=== PATIENT | female | born 1950 | race Caucasian/White ===

== ENCOUNTER 2018-06-30 20:46 | Inpatient (IN) | payer MEDICARE ==
[~2018-06-30] VITALS: Ht 157.5 cm; Wt 69.5 kg
[~2018-06-30 20:46] MED LIST: ALEN70 PO; ANGELIQ PO; ARIP10 PO; ARIP15; BCOIRO; BUDE6HFA INH; BUPR150ER PO; CALCAVITDA; CLON1; CLON1 PO; Chantix1 EACH; DESV50 PO; DESVENLAFAXINE50 M2 PO; DEXL60CA3 PO; DICL25ER PO; DICL75ER; DICMIS50EC PO; DOXY100 PO; ERGO50000 PO; ESTMEDA; EZET10-20 PO; FISH1000; FLUO20 PO; GABA400; GLUCHON; IBUP600 PO; LAMO100 PO; LITH300C PO; LORA.5 PO; Lamictal200 MG PO; METO25 PO; METO25ER PO; NORT25; NORT25 PO; OMEP20ER PO; OXYACE5T; PANT40; PROM25 PO; PROP20 PO; PROP60; Percocet 5-3251 EACH PO; Sudogest30 MG; TOLT4 PO; TOPI25; TOPI50 PO; VENL150ER PO; VENL25; Veetids 500500 MG PO; ZALE5
[2018-06-30] MEDS ORDERED: TRAZ100 PO (21:01)
[2018-06-30 21:18] LABS: BASOPHILS ABSOLUTE AUTO 0.04 K/mm3 (0.00-0.23); BASOPHILS PERCENT AUTO 1 % (0-2); EOSINOPHILS ABSOLUTE AUTO 0.02 K/mm3 (0.00-0.68); EOSINOPHILS PERCENT AUTO 0 % (0-6); Hemoglobin 15.5 g/dL (11.5-16.0); IMMATURE GRAN ABSOLUTE AUTO 0.03 K/mm3 (0.00-0.10); IMMATURE GRAN PERCENT AUTO 0 % (0-1); LYMPHOCYTES ABSOLUTE AUTO 0.89 K/mm3 (0.84-5.20); LYMPHOCYTES PERCENT AUTO 10 % (21-46); MONOCYTES ABSOLUTE AUTO 0.55 K/mm3 (0.16-1.47); MONOCYTES PERCENT AUTO 6 % (4-13); Mean Corpuscular HGB 31.3 pg (26.0-34.0); Mean Corpuscular Volume 95 fL (80-100); Mean Platelet Volume 10.7 fL (9.1-12.4); NEUTROPHILS ABSOLUTE AUTO 7.06 K/mm3 (1.96-9.15); NEUTROPHILS PERCENT AUTO 82 % (41-73); Platelet Count 170 K/mm3 (150-400); RDW Coefficient Variation 13.2 % (11.7-14.2); Red Blood Cell Count 4.95 M/mm3 (3.80-5.20); White Blood Cell Count 8.59 K/mm3 (4.00-11.30)
[2018-06-30 21:38] LABS: Alanine Aminotransfer (ALT/SGP 34 U/L (12-78); Albumin, Blood 4.5 g/dL (3.4-5.0); Albumin/Globulin Ratio 1.3 (0.8-1.8); Alk Phos 111 U/L (50-136); Anion Gap 8 mmol/L (6-16); Aspartate Aminotrans (AST/SGOT 24 U/L (12-37); Bilirubin, Total 0.4 mg/dL (0.1-1.0); Blood Urea Nitrogen 8 mg/dL (8-24); Bun/Creatinine Ratio 7.9 (12.0-20.0); CO2, Blood 24 mmol/L (21-32); Calcium, Blood 9.2 mg/dL (8.5-10.1); Chloride, Blood 111 mmol/L (98-108); Creatinine, Blood 1.01 mg/dL (0.40-1.00); Globulin, Blood 3.5 g/dL (2.2-4.0); Glomerular Filtration Rate 58 (60-); Glucose, Blood 131 mg/dL (70-99); Potassium, Blood 3.5 mmol/L (3.5-5.5); Sodium, Blood 143 mmol/L (136-145); Troponin I <0.015 ng/mL (0.000-0.040)
[2018-06-30 22:42] LABS: Influenza A Negative (NEGATIVE); Influenza B Negative (NEGATIVE)
[2018-07-01] MEDS ORDERED: ATOR20 PO (01:02)
[2018-07-01] MEDS ORDERED: Halcion0.25 MG PO (01:03)
[2018-07-01] MEDS ORDERED: TOLT2 PO (01:04)
[2018-07-01] MEDS ORDERED: ALBU90OI61 INH (01:07)
[2018-07-01 05:27] LABS: Hematocrit 43.9 % (33.0-51.0); Hemoglobin 14.5 g/dL (11.5-16.0); Mean Corpuscular HGB 31.4 pg (26.0-34.0); Mean Corpuscular Volume 95 fL (80-100); Platelet Count 141 K/mm3 (150-400); RDW Coefficient Variation 13.2 % (11.7-14.2); Red Blood Cell Count 4.62 M/mm3 (3.80-5.20); White Blood Cell Count 6.34 K/mm3 (4.00-11.30)
[2018-07-01 06:02] LABS: Alanine Aminotransfer (ALT/SGP 29 U/L (12-78); Albumin, Blood 3.9 g/dL (3.4-5.0); Albumin/Globulin Ratio 1.1 (0.8-1.8); Alk Phos 97 U/L (50-136); Anion Gap 7 mmol/L (6-16); Aspartate Aminotrans (AST/SGOT 19 U/L (12-37); Bilirubin, Total 0.6 mg/dL (0.1-1.0); Blood Urea Nitrogen 10 mg/dL (8-24); Bun/Creatinine Ratio 11.1 (12.0-20.0); CO2, Blood 25 mmol/L (21-32); Calcium, Blood 8.8 mg/dL (8.5-10.1); Chloride, Blood 110 mmol/L (98-108); Globulin, Blood 3.6 g/dL (2.2-4.0); Glomerular Filtration Rate >60 (60-); Glucose, Blood 116 mg/dL (70-99); Potassium, Blood 3.7 mmol/L (3.5-5.5); Sodium, Blood 142 mmol/L (136-145); Total Protein, Blood 7.5 g/dL (6.4-8.2)
--- NOTE | 2018-07-01 07:07 | NUR ---
SHIFT SUMMARY 0050 RECEIVED PT TO RM 341 VIA GURNEY FROM ER. PT ABLE TO TX SELF TO BED. ADMITTED FOR COPD EXAC. RECEIVED REPORT FROM JOLIE CLEVELAND. PT NORMALLY ON 2.5L O2 ONLY AT HS, BUT HAVING INCREASED SOB YESTERDAY REQUIRING O2 ALL DAY. PT REPORTED INCREASED WEAKNESS WELL. TRIAL AMBULATION DONE IN ER SHOWING O2 SATS DECREASED TO 80% ON RA. O2 PLACED. PT INDEPENDANT TO BTHRM WITH O2 EXTENSION. SOB WITH ACTIVITY. CXR REPORTED TO BE CLEAR. PT REPORTED THAT SHE IS STILL A SMOKER; 1/2 PACK/DAY. COUGH MEDICATION GIVEN AFTER ADMISSION; PT REPORTED IT EFFECTIVE AND WAS ABLE TO SLEEP. PLEASANT AND CO-OP. DENIED FURTHER NEEDS THIS AM. REPORT GIVEN TO DELANO CLEVELAND.
--- NOTE | 2018-07-01 15:21 | NUR ---
DRY COUGH NOTED PT REPORTS NONPRODUCTIVE COUGH. UNABLE TO PROVIDE A SPUTUM SAMPLE AT THIS TIME.
--- NOTE | 2018-07-01 18:03 | NUR ---
SHIFT SUMMARY OX3; INDEPENDENT IN [place]; 2.5L 02 PER NC FOR SLEEP AT HOME; 2.5L 02 CONTINUOUS IN HOSPITAL. DRY NONPRODUCTIVE COUGH NOTED PRN MED GIVEN. DENIES ANY PAIN. NEBS GIVEN PER RT. PLEASANT, COOPERATIVE. HOME MEDS LABELED BY PHARMACY AND PLACED IN DRAWER.
--- NOTE | 2018-07-02 04:09 | NUR ---
NOC SHIFT SUMMARY PT HAS BEEN PLEASANT AND COOPERATIVE WITH CARE THIS NIGHT VS HAVE BEEN STABLE. PT WAS ABLE TO PRODUCE SPUTUM SAMPLE FOR CX AND THIS WAS SENT TO LAB EARLY IN THE NIGHT. SHE COMPLAINED OF CONTINUED COUGH WHICH WAS DISTURBING HER SLEEP. DEXTROMETHORPHAN COUGH SYRUP WAS GIVEN AND PT'S COUGH WAS MUCH IMPROVED ALLOWING HER TO SLEEP. RESP EVEN AND UNLABORED. PT CURRENLTY SLEEPING, APPEARS IN NOT ACUTE DISTRESS. WILL CONTINUE TO MONITOR.
--- NOTE | 2018-07-02 18:02 | NUR ---
SHIFT SUMMARY OX3 PLEASANT, CALM SEVERAL VISITORS TODAY. DENIES ANY PAIN. SOB IMPROVING. REMAINS ON 2.5L PER NC. INDEPENDENT IN ROOM. POSSIBLE DC IN A.M.
--- NOTE | 2018-07-03 04:23 | NUR ---
SHIFT SUMMARY NO ACUTE CHANGES THIS SHIFT. PT SLEPT WELL T/O NIGHT, AOX4. DENIES PAIN OR N/V. DENIES SOB WHILE @REST, REPORTS DISCOMFORT W/COUGHING & MEDICATED 1X W/ROBITUSSIN PER ORDERS. LUNGS SOUND COURSE T/O W/EXPIRATORY WHEEZES IN BILAT UPPER LOBES. PT HAS E/U BREATHING. VSS. SPO2@ 93% ON 2.5L. PT IS NSR W/HR 93 PER TELE BEE RAISER. PT INDEPENDENTLY AMBULATING TO RESTROOM. CALL LIGHT IN REACH & I WILL CONT. TO MONITOR.
[2018-07-03] MEDS ORDERED: NICOTINE1 EAC1 TOP (13:18)
[2018-07-03] MEDS ORDERED: PRED20 PO (13:19)
[2018-07-03] MEDS ORDERED: IBUP600 PO (13:20)
--- NOTE | 2018-07-03 15:45 | NUR ---
DISCHARGE SUMMARY PT A&OX4. CALM AND COOPERATIVE WITH CARE. PT RESTING IN BED DURING SHIFT. UP IN ROOM IND. SOB WITH EXERTION, TITRATED FROM 2L O2 VIA NC TO RA, >90%, RECEIVING BREATHING TREATMENTS. REPORTS PRODUCTIVE COUGH, MEDICATED X1 WITH ROBATUSSIN. PT DENIES PAIN AND N/V DURING SHIFT. VSS. NO OTHER ACUTE CHANGES NOTED DURING SHIFT. PT EDUCATED ON DISCHARGE INSTRUCTIONS, MEDICATIONS AND FOLLOW UP APPOINTMENTS. DISCUSS SMOKING CESSATION AND STEPS TO QUITING. PRESCRIPTIOSN FAXED AND CALLED INTO [facility] ON [address]. PT LEFT ROOM VIA WHEELCHAIR AT 1455. PT STABLE UPON DISCHARGE.
== END 2018-07-03 14:59 | disposition home or self-care (01) | DRG 189 ==
LOC: ER 20:46 → MEDS 20:47 → ENPENDDIS 07-03 13:06 → MEDS 07-03 14:59
PROVIDERS: Emergency Medicine; ADMIT Internal Medicine
DX: J96.21 Acute and chronic respiratory failure with hypoxia (principal); J44.1 Chronic obstructive pulmonary disease with (acute) exacerbation; J44.0 Chronic obstructive pulmonary disease with (acute) lower respiratory infection; J20.9 Acute bronchitis, unspecified; K21.9 Gastro-esophageal reflux disease without esophagitis; E66.9 Obesity, unspecified; F31.9 Bipolar disorder, unspecified; G43.909 Migraine, unspecified, not intractable, without status migrainosus; F43.10 Post-traumatic stress disorder, unspecified; F17.210 Nicotine dependence, cigarettes, uncomplicated; Z88.5 Allergy status to narcotic agent; Z88.8 Allergy status to other drugs, medicaments and biological substances; Z99.81 Dependence on supplemental oxygen; Z79.899 Other long term (current) drug therapy
CPT/HCPCS: 36415; 71045; 80053; 83880; 84145; 84484; 85025; 85027; 87070; 87205; 87804; 93005; 93010; 94640; 94664; 94667; 94760; 96365; 96366; 96372; 96375; 98960; 99285-25; 99407; G0378; J1650; J1956; J2930; J7050

== ENCOUNTER → 2019-08-08 | Outpatient (CLI) | payer OTHER ==
[~2019-08-08] MED LIST changes: +ALBU90OI61 INH; +ATOR20 PO; +Halcion0.25 MG PO; +NICOTINE1 EAC1 TOP; +PRED20 PO; +TOLT2 PO; +TRAZ100 PO
[2019-08-08 16:22] LABS: BASOPHILS ABSOLUTE AUTO 0.02 K/mm3 (0.00-0.23); BASOPHILS PERCENT AUTO 1 % (0-2); EOSINOPHILS ABSOLUTE AUTO 0.04 K/mm3 (0.00-0.68); EOSINOPHILS PERCENT AUTO 1 % (0-6); Hematocrit 32.5 % (33.0-51.0); Hemoglobin 10.7 g/dL (11.5-16.0); IMMATURE GRAN PERCENT AUTO 0 % (0-1); LYMPHOCYTES ABSOLUTE AUTO 0.27 K/mm3 (0.84-5.20); LYMPHOCYTES PERCENT AUTO 9 % (21-46); MONOCYTES ABSOLUTE AUTO 0.37 K/mm3 (0.16-1.47); MONOCYTES PERCENT AUTO 12 % (4-13); Mean Corpuscular HGB 30.9 pg (26.0-34.0); Mean Corpuscular HGB Conc 32.9 g/dL (31.5-36.5); Mean Corpuscular Volume 94 fL (80-100); Mean Platelet Volume 10.2 fL (9.1-12.4); NEUTROPHILS ABSOLUTE AUTO 2.28 K/mm3 (1.96-9.15); NEUTROPHILS PERCENT AUTO 77 % (41-73); Platelet Count 196 K/mm3 (150-400); RDW Coefficient Variation 15.1 % (11.7-14.2); RDW Standard Deviation 51.3 fL (35.1-46.3); Red Blood Cell Count 3.46 M/mm3 (3.80-5.20); White Blood Cell Count 2.98 K/mm3 (4.00-11.30)
== END | disposition home or self-care (01) ==
LOC: LAB EV 16:18 → LAB SHORT 16:18
PROVIDERS: General Practice
DX: N39.0 Urinary tract infection, site not specified (principal)
CPT/HCPCS: 85025; 87086

== ENCOUNTER 2021-04-06 00:13 | Emergency (ER) | payer OTHER ==
[~2021-04-06] VITALS: Ht 157.5 cm; Wt 68.0 kg
[2021-04-06] MEDS ORDERED: TRAZ150T57 PO (00:36)
[2021-04-06 01:12] LABS: BASOPHILS ABSOLUTE AUTO 0.02 K/mm3 (0.00-0.23); BASOPHILS PERCENT AUTO 1 % (0-2); EOSINOPHILS ABSOLUTE AUTO 0.06 K/mm3 (0.00-0.68); EOSINOPHILS PERCENT AUTO 1 % (0-6); Hemoglobin 14.2 g/dL (11.5-16.0); IMMATURE GRAN ABSOLUTE AUTO 0.01 K/mm3 (0.00-0.10); IMMATURE GRAN PERCENT AUTO 0 % (0-1); LYMPHOCYTES ABSOLUTE AUTO 0.79 K/mm3 (0.84-5.20); LYMPHOCYTES PERCENT AUTO 18 % (21-46); MONOCYTES ABSOLUTE AUTO 0.52 K/mm3 (0.16-1.47); MONOCYTES PERCENT AUTO 12 % (4-13); Mean Corpuscular HGB 31.1 pg (26.0-34.0); Mean Corpuscular Volume 94 fL (80-100); Mean Platelet Volume 10.7 fL (9.1-12.4); NEUTROPHILS ABSOLUTE AUTO 2.92 K/mm3 (1.96-9.15); NEUTROPHILS PERCENT AUTO 68 % (41-73); Platelet Count 136 K/mm3 (150-400); RDW Coefficient Variation 13.5 % (11.7-14.2); RDW Standard Deviation 46.4 fL (35.1-46.3); Red Blood Cell Count 4.57 M/mm3 (3.80-5.20); White Blood Cell Count 4.32 K/mm3 (4.00-11.30)
[2021-04-06 01:35] LABS: Alanine Aminotransfer (ALT/SGP 33 U/L (12-78); Albumin, Blood 3.6 g/dL (3.4-5.0); Alk Phos 86 U/L (50-136); Anion Gap 6 mmol/L (6-16); Aspartate Aminotrans (AST/SGOT 30 U/L (12-37); Bilirubin, Total 0.4 mg/dL (0.1-1.0); Blood Urea Nitrogen 14 mg/dL (8-24); Bun/Creatinine Ratio 23.2 (12.0-20.0); CO2, Blood 27 mmol/L (21-32); Calcium, Blood 9.1 mg/dL (8.5-10.1); Chloride, Blood 111 mmol/L (98-108); Globulin, Blood 3.5 g/dL (2.2-4.0); Glomerular Filtration Rate >60 (60-); Glucose, Blood 110 mg/dL (70-99); Potassium, Blood 3.6 mmol/L (3.5-5.5); Sodium, Blood 144 mmol/L (136-145); Total Protein, Blood 7.1 g/dL (6.4-8.2); Troponin I <0.015 ng/mL (0.000-0.040)
[2021-04-06] MEDS ORDERED: AZIT250 PO (03:19)
[2021-04-06] MEDS ORDERED: ALBU2.5V5 INH (03:19)
== END 2021-04-06 04:06 | disposition home or self-care (01) ==
LOC: ER 00:13
PROVIDERS: Student in an Organized Health Care Education/Training Program
DX: J44.1 Chronic obstructive pulmonary disease with (acute) exacerbation (principal); Z88.5 Allergy status to narcotic agent; Z88.8 Allergy status to other drugs, medicaments and biological substances; G43.909 Migraine, unspecified, not intractable, without status migrainosus; K21.9 Gastro-esophageal reflux disease without esophagitis; Z79.899 Other long term (current) drug therapy
CPT/HCPCS: 36415; 71046; 80053; 83880; 84484; 85025; 93005; 93010; 94640; 94644; 94645; 96374; 99285-25; A9270; J1100

== ENCOUNTER 2021-12-19 10:31 | Emergency (ER) | payer OTHER ==
[~2021-12-19] VITALS: Ht 157.5 cm; Wt 59.4 kg
[~2021-12-19 10:31] MED LIST changes: +ALBU2.5V5 INH; +AZIT250 PO; +TRAZ150T57 PO
[2021-12-19 12:47] LABS: BASOPHILS ABSOLUTE AUTO 0.01 K/mm3 (0.00-0.23); BASOPHILS PERCENT AUTO 0 % (0-2); EOSINOPHILS ABSOLUTE AUTO 0.01 K/mm3 (0.00-0.68); EOSINOPHILS PERCENT AUTO 0 % (0-6); Hematocrit 41.8 % (33.0-51.0); Hemoglobin 13.8 g/dL (11.5-16.0); IMMATURE GRAN ABSOLUTE AUTO 0.02 K/mm3 (0.00-0.10); IMMATURE GRAN PERCENT AUTO 1 % (0-1); LYMPHOCYTES ABSOLUTE AUTO 0.48 K/mm3 (0.84-5.20); LYMPHOCYTES PERCENT AUTO 12 % (21-46); MONOCYTES ABSOLUTE AUTO 0.41 K/mm3 (0.16-1.47); MONOCYTES PERCENT AUTO 11 % (4-13); Mean Corpuscular HGB 30.3 pg (26.0-34.0); Mean Corpuscular Volume 92 fL (80-100); NEUTROPHILS ABSOLUTE AUTO 2.99 K/mm3 (1.96-9.15); NEUTROPHILS PERCENT AUTO 76 % (41-73); Platelet Count 264 K/mm3 (150-400); RDW Coefficient Variation 13.1 % (11.7-14.2); RDW Standard Deviation 44.6 fL (35.1-46.3); Red Blood Cell Count 4.55 M/mm3 (3.80-5.20); White Blood Cell Count 3.92 K/mm3 (4.00-11.30)
[2021-12-19 13:05] LABS: Albumin, Blood 2.9 g/dL (3.4-5.0); Albumin/Globulin Ratio 0.6 (0.8-1.8); Bilirubin, Total 0.6 mg/dL (0.1-1.0); Bun/Creatinine Ratio 13.3 (12.0-20.0); Calcium, Blood 9.1 mg/dL (8.5-10.1); Creatinine, Blood 0.68 mg/dL (0.40-1.00); Globulin, Blood 4.7 g/dL (2.2-4.0); Potassium, Blood 3.3 mmol/L (3.5-5.5); Total Protein, Blood 7.6 g/dL (6.4-8.2)
== END 2021-12-19 19:00 | disposition home or self-care (01) ==
LOC: ER 10:31
PROVIDERS: Student in an Organized Health Care Education/Training Program
DX: R19.7 Diarrhea, unspecified (principal); K21.9 Gastro-esophageal reflux disease without esophagitis; J44.9 Chronic obstructive pulmonary disease, unspecified; F17.210 Nicotine dependence, cigarettes, uncomplicated; Z79.899 Other long term (current) drug therapy; Z88.5 Allergy status to narcotic agent; Z88.8 Allergy status to other drugs, medicaments and biological substances
CPT/HCPCS: 36415; 80053; 85025; J7030

== ENCOUNTER → 2021-12-25 | Outpatient (CLI) | payer OTHER ==
[2021-12-27 17:11] LABS: Adenovirus F 40/41 Not Detected (NOT DETECT); Astrovirus Not Detected (NOT DETECT); Campylobacter Sp Not Detected (NOT DETECT); Cryptosporidium Not Detected (NOT DETECT); Cyclospora Cayetanensis Not Detected (NOT DETECT); E. Coli O157 Not Detected (NOT DETECT); Entamoeba Histolytica Not Detected (NOT DETECT); Enteroaggregative E. coli-EAEC Not Detected (NOT DETECT); Enteropathogenic E. coli-EPEC Not Detected (NOT DETECT); Enterotoxigenic E. coli-ETEC Not Detected (NOT DETECT); Giardia Lamblia Not Detected (NOT DETECT); Norovirus GI/GII Not Detected (NOT DETECT); Plesiomonas Shigelloides Not Detected (NOT DETECT); Rotavirus A Not Detected (NOT DETECT); Salmonella Sp Not Detected (NOT DETECT); Sapovirus Not Detected (NOT DETECT); Shiga Toxin-prod E. coli-STEC Not Detected (NOT DETECT); Shigella/Enteroin E. coli-EIEC Not Detected (NOT DETECT); Vibrio Cholerae Not Detected (NOT DETECT); Vibrio Sp Not Detected (NOT DETECT); Yersinia Enterocolitica Not Detected (NOT DETECT)
== END | disposition home or self-care (01) ==
LOC: LAB SHORT 14:00 → LAB 14:00
PROVIDERS: Emergency Medicine
DX: R19.7 Diarrhea, unspecified (principal)
CPT/HCPCS: 87324; 87507

== ENCOUNTER 2022-12-16 16:45 | Inpatient (IN) | payer OTHER | END 2022-12-21 16:40 | DRG 480 | LOC: ER 16:45 → SURS 19:38 → PCU 12-18 19:38 → ICUE 12-19 03:20 → SURS 12-20 09:50 | PROVIDERS: ADMIT Internal Medicine | PROC: 0QS606Z Reposition Right Upper Femur with Intramedullary Internal Fixation Device, Open Approach (ICD-10-PCS; 2022-12-18) | PROC: 30233N1 Transfusion of Nonautologous Red Blood Cells into Peripheral Vein, Percutaneous Approach (ICD-10-PCS; principal; 2022-12-19) | PROC: 3E033XZ Introduction of Vasopressor into Peripheral Vein, Percutaneous Approach (ICD-10-PCS; 2022-12-19) | DX: S72.141A Displaced intertrochanteric fracture of right femur, initial encounter for closed fracture (principal); J96.21 Acute and chronic respiratory failure with hypoxia; J96.22 Acute and chronic respiratory failure with hypercapnia; F32.A Depression, unspecified; Z20.822 Contact with and (suspected) exposure to COVID-19; I95.9 Hypotension, unspecified; D64.89 Other specified anemias; F43.10 Post-traumatic stress disorder, unspecified; G43.909 Migraine, unspecified, not intractable, without status migrainosus; K21.9 Gastro-esophageal reflux disease without esophagitis; E78.5 Hyperlipidemia, unspecified; J44.9 Chronic obstructive pulmonary disease, unspecified; W18.39XA Other fall on same level, initial encounter; Y93.01 Activity, walking, marching and hiking; F17.210 Nicotine dependence, cigarettes, uncomplicated; Z88.5 Allergy status to narcotic agent; Z99.81 Dependence on supplemental oxygen; Z79.1 Long term (current) use of non-steroidal anti-inflammatories (NSAID); Z88.8 Allergy status to other drugs, medicaments and biological substances; Z79.899 Other long term (current) drug therapy; Z98.890 Other specified postprocedural states; Z98.1 Arthrodesis status; Z98.51 Tubal ligation status ==

== ENCOUNTER 2023-05-25 00:18 | Emergency (ER) | payer OTHER ==
[~2023-05-25] VITALS: Ht 160 cm; Wt 65.8 kg
[~2023-05-25 00:18] MED LIST changes: +TRELEGY ELLIPT1 EAC1 INH; +VENL75ER PO
[2023-05-25] MEDS ORDERED: TRELEGY ELLIPT1 EAC1 INH (00:30)
[2023-05-25] MEDS ORDERED: OMEP20ER PO (00:31)
[2023-05-25] MEDS ORDERED: AMOX500 PO (00:33)
[2023-05-25 01:06] LABS: BASOPHILS ABSOLUTE AUTO 0.03 K/mm3 (0.00-0.23); BASOPHILS PERCENT AUTO 1 % (0-2); EOSINOPHILS ABSOLUTE AUTO 0.14 K/mm3 (0.00-0.68); EOSINOPHILS PERCENT AUTO 3 % (0-6); Hematocrit 38.8 % (33.0-51.0); Hemoglobin 12.8 g/dL (11.5-16.0); IMMATURE GRAN ABSOLUTE AUTO 0.02 K/mm3 (0.00-0.10); IMMATURE GRAN PERCENT AUTO 0 % (0-1); LYMPHOCYTES PERCENT AUTO 21 % (21-46); MONOCYTES ABSOLUTE AUTO 0.36 K/mm3 (0.16-1.47); MONOCYTES PERCENT AUTO 6 % (4-13); Mean Corpuscular HGB 29.4 pg (26.0-34.0); Mean Corpuscular Volume 89 fL (80-100); Mean Platelet Volume 9.8 fL (9.1-12.4); NEUTROPHILS ABSOLUTE AUTO 3.94 K/mm3 (1.96-9.15); NEUTROPHILS PERCENT AUTO 69 % (41-73); Platelet Count 170 K/mm3 (150-400); RDW Coefficient Variation 13.8 % (11.7-14.2); Red Blood Cell Count 4.36 M/mm3 (3.80-5.20); White Blood Cell Count 5.69 K/mm3 (4.00-11.30)
[2023-05-25 01:25] LABS: Albumin, Blood 3.4 g/dL (3.4-5.0); Bilirubin, Total 0.2 mg/dL (0.1-1.0); Calcium, Blood 8.5 mg/dL (8.5-10.1); Creatinine, Blood 0.61 mg/dL (0.40-1.00); Globulin, Blood 3.4 g/dL (2.2-4.0); Potassium, Blood 3.8 mmol/L (3.5-5.5); Total Protein, Blood 6.8 g/dL (6.4-8.2)
[2023-05-25] MEDS ORDERED: Ventolin5 MG/1 ML INH (04:22)
[2023-05-25] MEDS ORDERED: PRED20 PO (04:22)
[2023-05-25 05:15] VITALS: BP 145/87
== END 2023-05-25 05:22 | disposition home or self-care (01) ==
LOC: ER 00:18
PROVIDERS: Student in an Organized Health Care Education/Training Program
DX: J44.1 Chronic obstructive pulmonary disease with (acute) exacerbation (principal); K21.9 Gastro-esophageal reflux disease without esophagitis; G43.909 Migraine, unspecified, not intractable, without status migrainosus; F43.10 Post-traumatic stress disorder, unspecified; F31.9 Bipolar disorder, unspecified; F17.210 Nicotine dependence, cigarettes, uncomplicated; Z79.51 Long term (current) use of inhaled steroids; Z79.899 Other long term (current) drug therapy; Z88.5 Allergy status to narcotic agent
CPT/HCPCS: 71046; 80053; 85025; 93005; 93010; 94640; 94664; 99285-25

== ENCOUNTER 2023-06-18 22:07 | Inpatient (IN) | payer OTHER ==
[~2023-06-18] VITALS: Ht 157.5 cm; Wt 67.9 kg
[~2023-06-18 22:07] MED LIST changes: +AMOX500 PO; +Ventolin5 MG/1 ML INH
[2023-06-18] MEDS ORDERED: Ipratropium Bromide INH 0.02% 0.5 mg/2.5ML Vial INH SCH (22:30)
[2023-06-18] MEDS ORDERED: Mag Sulfate 1 GM/D5% 100ML 100 ML IV ONE (22:30)
[2023-06-18] MEDS ORDERED: Albuterol 2.5 MG/3 ML VIAL INH ONE (22:30)
[2023-06-18 22:49] LABS: BASOPHILS ABSOLUTE AUTO 0.04 K/mm3 (0.00-0.23); BASOPHILS PERCENT AUTO 0 % (0-2); EOSINOPHILS ABSOLUTE AUTO 0.22 K/mm3 (0.00-0.68); EOSINOPHILS PERCENT AUTO 2 % (0-6); Hematocrit 45.3 % (33.0-51.0); Hemoglobin 14.8 g/dL (11.5-16.0); IMMATURE GRAN ABSOLUTE AUTO 0.04 K/mm3 (0.00-0.10); IMMATURE GRAN PERCENT AUTO 0 % (0-1); LYMPHOCYTES PERCENT AUTO 26 % (21-46); MONOCYTES ABSOLUTE AUTO 0.61 K/mm3 (0.16-1.47); MONOCYTES PERCENT AUTO 5 % (4-13); Mean Corpuscular HGB 29.4 pg (26.0-34.0); Mean Corpuscular HGB Conc 32.7 g/dL (31.5-36.5); Mean Corpuscular Volume 90 fL (80-100); Mean Platelet Volume 9.9 fL (9.1-12.4); NEUTROPHILS ABSOLUTE AUTO 9.17 K/mm3 (1.96-9.15); NEUTROPHILS PERCENT AUTO 67 % (41-73); Platelet Count 236 K/mm3 (150-400); RDW Coefficient Variation 14.2 % (11.7-14.2); RDW Standard Deviation 46.1 fL (35.1-46.3); Red Blood Cell Count 5.04 M/mm3 (3.80-5.20); White Blood Cell Count 13.68 K/mm3 (4.00-11.30)
[2023-06-18 22:52] LABS: Base Excess Venous 2.1 mmol/L; Bicarbonate Venous 24.6 mmol/L (24.0-30.0); PO2 Venous 91.9 mmHg (38-42)
[2023-06-18 22:56] LABS: pH Blood Venous 7.28 (7.34-7.37)
[2023-06-18 22:59] LABS: Magnesium, Blood 1.9 mg/dL (1.6-2.4)
[2023-06-18] MEDS ORDERED: CefTRIAXone Sodium 1,000 MG in NS 50 ML IV ONE (23:20)
[2023-06-18] MEDS ORDERED: NS 1,000 ML IV SCH (23:20)
[2023-06-18] MEDS ORDERED: Azithromycin 500 MG in NS 250 ML IV ONE (23:20)
[2023-06-18 23:26] LABS: Influenza A, PCR NEGATIVE (NEGATIVE); Influenza B, PCR NEGATIVE (NEGATIVE); Resp Syncytial Virus, PCR NEGATIVE (NEGATIVE); SARS-Cov-2 (COVID-19) PCR, MMC NEGATIVE (NEGATIVE)
[2023-06-18 23:53] LABS: Albumin, Blood 4.1 g/dL (3.4-5.0); Albumin/Globulin Ratio 1.2 (0.8-1.8); Bilirubin, Total 0.4 mg/dL (0.1-1.0); Bun/Creatinine Ratio 17.9 (12.0-20.0); Creatinine, Blood 0.73 mg/dL (0.40-1.00); Globulin, Blood 3.3 g/dL (2.2-4.0); Potassium, Blood 3.5 mmol/L (3.5-5.5); Total Protein, Blood 7.4 g/dL (6.4-8.2)
[2023-06-19] VITALS (19 sets, daily range): BP systolic 92–134; BP diastolic 64–94
[2023-06-19] MEDS ORDERED: Acetaminophen 325 MG TABLET PO PRN (00:30)
[2023-06-19] MEDS ORDERED: FLU VACC QS2023-24(6MOS UP)/PF 60 MCG/0.5 ML SYRINGE IM ONE (00:30)
[2023-06-19] MEDS ORDERED: Ipratropium/Albuterol SulF 2.5-0.5MG/3 ML Amp INH SCH (00:35)
[2023-06-19] MEDS ORDERED: NS 1,000 ML IV SCH (01:00)
[2023-06-19] MEDS ORDERED: CENTRUM SILVER1 EAC2 PO (02:22)
[2023-06-19] MEDS ORDERED: B-12500 MC2 PO (02:23)
--- NOTE | 2023-06-19 03:12 | NUR ---
PT ADMITTED TO ROOM ICU 14 FROM ED UNDER PCU STATUS. ARRIVING AT 0145 THIS MORNING. PT SLIDE TRANSFERRED TO BED. PT ALERT AND ORIENTED. ON NASAL CANNULA AT 5 L/M. WITH EXERTION AND ANSWERING QUESTIONS PT DESATURATES TO [address] PT TO BIPAP AT 14/7 WITH BACKUP RATE 16, FIO2 30 PERCENT. PT RESPONDS QUICKLY TO THIS AND SATURATIONS INCREASE TO 95-96 PERCENT. PT ABLE TO ANSWER QUESTIONS FOR INTERVIEW. GOOD HISTORIAN. PT DENIES PAIN OR NAUSEA. WILL REVIEW CHART AND PLAN OF CARE FOR THIS PT.
--- NOTE | 2023-06-19 05:34 | NUR ---
PT CONTINUES WITH BIPAP AND IS COMPLIANT WITH WEARING MASK. MAINTAINS O2 SATURATIONS > 90 PERCENT. HAS BEEN ABLE TO SLEEP. WILL CONTINUE TO MONITOR PT, AND WILL REPORT OFF TO ONCOMING RN.
[2023-06-19] MEDS ORDERED: Pantoprazole Sodium 40 MG Injection IV SCH (06:00)
[2023-06-19] MEDS ORDERED: MethylPREDNISolone Sod Succ 125 MG Vial IV SCH (06:00)
[2023-06-19] MEDS ORDERED: Insulin Human Lispro 100 Units/ML 3ML Syringe SC SCH ×2 (06:00→07:30)
--- NOTE | 2023-06-19 08:20 | NUR ---
INITIAL ASSESSMENT PATIENT RESTING IN BED QUIETLY UPON ENTERING ROOM. PATIENT ALERT AND ORIENTED X 4, AFEBRILE. PATIENT DENIES PAIN. PATIENT 1 PERSON ASSIST WITH HOME CANE. PATIENT DECREASED FROM 3 L NC (HOME DOSE) TO 2 L NC AND REMAINS SATTING AROUND 92 TO 94%. CRACKLES TO LOWER LUNG LOBES. EXPIRATORY WHEEZE TO RUL. PATIENT STATES SHE HAS OCCASIONAL, NONPRODUCTIVE COUGH. PATIENT IN SR WITH PACS, HR IN THE 90S. SBP IN THE LOW 100S. GI APPEARS WNL. PATIENT REPORTS OCCASIONAL URINARY INCONTINENCE AT BASELINE. SKIN FRAGILE AND DRY. SCATTERED BRUISING NOTED T/O BODY. NS INFUSING AT 125 MLS/ HOUR. BED LOW, CALL LIGHT IN REACH. CARE CONTINUES.
[2023-06-19 08:40] LABS: Bicarbonate Venous 24.5 mmol/L (24.0-30.0); PO2 Venous 78.7 mmHg (38-42); pH Blood Venous 7.33 (7.34-7.37)
[2023-06-19] MEDS ORDERED: Lactobacil 2-S.Thermo-Bifido 1 1 Cap PO SCH (09:00)
[2023-06-19] MEDS ORDERED: Venlafaxine HCl 75 MG CapCR PO SCH (09:00)
[2023-06-19] MEDS ORDERED: Enoxaparin 40 MG/0.4 ML SYR SC SCH (09:00)
[2023-06-19] MEDS ORDERED: TRELEGY ELLIPTA INH SCH (09:00)
[2023-06-19] MEDS ORDERED: Trospium Chloride 20 MG Tab PO SCH ×2 (09:00→16:30)
[2023-06-19] MEDS ORDERED: TOLTERODINE 4 MG PO SCH (09:05)
--- NOTE | 2023-06-19 10:52 | NUR ---
Pt. is awake in bed and welcomed my visit. Pt. is pleasant. Facilitated a life review and consideded matters of julianna and belief. Listened with empathy and interest. Pt. displays evidence of openness and trust. Lab techs arrived, and we agreed to resume visit later.
--- NOTE | 2023-06-19 13:08 | NUR ---
PATIENT AFEBRILE. HR IN THE 90S. SBP IN THE 120S. BLOOD SUGAR OF 155; COVERAGE ADMINISTERED. NO OTHER ACUTE CHANGES TO NOTE ON AT THIS TIME. NO COMPLAINTS AT THIS TIME. CALL LIGHT IN REACH. CARE CONTINUES.
--- NOTE | 2023-06-19 17:35 | NUR ---
PATIENT AFEBRILE. HR IN THE 90S. SBP IN THE 120S. PATIENT REMAINS SATTING OVER 90% ON 2 L NC. NO ACUTE CHANGES TO NOTE ON AT THIS TIME. NO COMPLAINTS AT THIS TIME. CARE CONTINUES.
--- NOTE | 2023-06-19 17:58 | NUR ---
SHIFT SUMMARY PATIENT REMAINED ALERT AND ORIENTED, AFEBRILE. PATIENT REMAINED CALM, PLEASANT AND COOPERATIVE. PATIENT HAD NO COMPLAINTS OF PAIN THIS SHIFT. PATIENT UP TO CHAIR A COUPLE OF TIMES THIS SHIFT. PATIENT 1 PERSON ASSIST WITH CANE FOR WEAKNESS. PATIENT REMAINED SATTING 90% AND GREATER THIS SHIFT ON 2 L NC. PATIENT REMAINED SR/ST WITH PACS, HR IN THE 90S TO LOW 100S. SBP LOW 100S TO 130S. NO BM THIS SHIFT. PATIENT HAD GOOD APPETITE. GOOD URINE OUTPUT THIS SHIFT. PATIENT DID HAVE SMALL AMOUNT OF VAGINAL BLEEDING WHICH IS NOT NORMAL FOR HER. DR. MORA'Aamir LOVENOX AND ORDERED FOR SCDS. NO CHANGES TO SKIN NOTED. PATIENT REPOSITIONING SELF WELL. PATIENT HAD COMPLETE BED BATH. NS AT 125 MLS/ HOUR ABBY'D THIS AM. PATIENT HAD ECHO PERFORMED THIS SHIFT. BLOOD SUGARS RANGED FROM 130 TO 172. PATIENT TO BE TRANSFERRED TO MEDICAL FLOOR SHORTLY.
--- NOTE | 2023-06-19 18:30 | NUR ---
PATIENT SUCCESSFULLY TRANSFERRED TO MEDICAL FLOOR, ROOM 303. ALL BELONGINGS SENT WITH PATIENT.
--- NOTE | 2023-06-19 19:09 | NUR ---
PATIENT TRANSFERRED FROM ICU14 TO ROOM 303. REPORT RECEIVED FROM MEGHA MOLINA. PATIENT MAINTAINING SATS ON 2LO2. A/OX4, INDEPENDENT WITH TRANSFER USING CANE. ORIENTED TO ROOM AND USE OF CALL LIGHT. PATIENT DENIES ANY NEEDS AT THIS TIME.
[2023-06-19] MEDS ORDERED: ARIPiprazole 5 MG Tab PO SCH (21:00)
[2023-06-19] MEDS ORDERED: TraZODone HCl 100 MG Tab PO SCH (21:00)
[2023-06-19] MEDS ORDERED: LamoTRIgine 100 MG Tab PO SCH (21:00)
[2023-06-19] MEDS ORDERED: CefTRIAXone Sodium 1,000 MG in NS 50 ML IV SCH (21:00)
[2023-06-19] MEDS ORDERED: Azithromycin 500 MG in NS 250 ML IV SCH (21:00)
[2023-06-19] MEDS ORDERED: Atorvastatin 10 MG Tab PO SCH (21:00)
[2023-06-20 03:52] VITALS: BP 101/65
--- NOTE | 2023-06-20 03:53 | NUR ---
Shift Summary Ms. Anglin has rested quielty throughout the night. Skin is warm and dry. Respirations are regular and unlabored. She has bilateral expiratory wheezes and crackles in the lower lobes. She is on oxygen at 2L per NC. She is alert and oriented x 4. She has a 20g IV in her Right AC that is saline locked. She is on Tele in a sinus rhythm with PACs. Her bed is in a low position with side rails up x 2 and call light in reach.
[2023-06-20 04:36] LABS: Base Excess Venous 3.5 mmol/L; Bicarbonate Venous 27.9 mmol/L (24.0-30.0); PCO2 Venous 33.6 mmHg (38-42); pH Blood Venous 7.51 (7.34-7.37)
[2023-06-20 05:10] LABS: BASOPHILS ABSOLUTE AUTO 0.02 K/mm3 (0.00-0.23); BASOPHILS PERCENT AUTO 0 % (0-2); EOSINOPHILS PERCENT AUTO 0 % (0-6); Hematocrit 41.1 % (33.0-51.0); Hemoglobin 13.7 g/dL (11.5-16.0); IMMATURE GRAN ABSOLUTE AUTO 0.05 K/mm3 (0.00-0.10); IMMATURE GRAN PERCENT AUTO 0 % (0-1); LYMPHOCYTES ABSOLUTE AUTO 0.72 K/mm3 (0.84-5.20); LYMPHOCYTES PERCENT AUTO 5 % (21-46); MONOCYTES ABSOLUTE AUTO 0.24 K/mm3 (0.16-1.47); MONOCYTES PERCENT AUTO 2 % (4-13); Mean Corpuscular HGB 29.8 pg (26.0-34.0); Mean Corpuscular HGB Conc 33.3 g/dL (31.5-36.5); Mean Corpuscular Volume 89 fL (80-100); Mean Platelet Volume 10.2 fL (9.1-12.4); NEUTROPHILS ABSOLUTE AUTO 12.66 K/mm3 (1.96-9.15); NEUTROPHILS PERCENT AUTO 92 % (41-73); Platelet Count 211 K/mm3 (150-400); RDW Coefficient Variation 14.3 % (11.7-14.2); RDW Standard Deviation 45.8 fL (35.1-46.3); White Blood Cell Count 13.69 K/mm3 (4.00-11.30)
[2023-06-20 05:44] LABS: Bun/Creatinine Ratio 31.2 (12.0-20.0); Calcium, Blood 9.1 mg/dL (8.5-10.1); Creatinine, Blood 0.67 mg/dL (0.40-1.00); Potassium, Blood 4.1 mmol/L (3.5-5.5)
[2023-06-20 07:30] VITALS: BP 121/64
[2023-06-20] MEDS ORDERED: PRED20 PO (10:26)
--- NOTE | 2023-06-20 12:18 | NUR ---
DISCHARGE NOTE: DISCUSSED DISCHARGE WITH PATIENT. HER IV AND TELEMETRY WERE D/C'D. SHE CONTACTED HER BOYFRIEND FOR A RIDE AND HE BROUGHT HER PORTAL OXYGEN. SHE DRESSES HERSELF AND GATHERED HER BELONGINGS. PATIENT TRANFERRED DOWN VIA WHEELCHAIR BY AMADOU. NO SIGNS OR SYMPTOMS OF DISTRESS DURING DISCHARGE.
== END 2023-06-20 11:45 | disposition home or self-care (01) | DRG 871 ==
LOC: ER 22:07 → ERHOLD 06-19 00:25 → ICUE 06-19 01:40 → MEDS 06-19 18:29
PROVIDERS: Internal Medicine; Student in an Organized Health Care Education/Training Program; ADMIT Internal Medicine
PROC: 3E03329 Introduction of Other Anti-infective into Peripheral Vein, Percutaneous Approach (ICD-10-PCS; principal; 2023-06-19)
PROC: 5A09357 Assistance with Respiratory Ventilation, Less than 24 Consecutive Hours, Continuous Positive Airway Pressure (ICD-10-PCS; 2023-06-19)
DX: A41.9 Sepsis, unspecified organism (principal); I21.A1 Myocardial infarction type 2; J18.9 Pneumonia, unspecified organism; J96.21 Acute and chronic respiratory failure with hypoxia; J96.22 Acute and chronic respiratory failure with hypercapnia; J44.1 Chronic obstructive pulmonary disease with (acute) exacerbation; J44.0 Chronic obstructive pulmonary disease with (acute) lower respiratory infection; E87.3 Alkalosis; F31.9 Bipolar disorder, unspecified; K21.9 Gastro-esophageal reflux disease without esophagitis; E78.5 Hyperlipidemia, unspecified; R94.31 Abnormal electrocardiogram [ECG] [EKG]; I44.7 Left bundle-branch block, unspecified; F43.10 Post-traumatic stress disorder, unspecified; G43.909 Migraine, unspecified, not intractable, without status migrainosus; F17.210 Nicotine dependence, cigarettes, uncomplicated; Z88.5 Allergy status to narcotic agent; Z98.890 Other specified postprocedural states; Z79.51 Long term (current) use of inhaled steroids; Z79.899 Other long term (current) drug therapy; Z79.2 Long term (current) use of antibiotics; Z99.81 Dependence on supplemental oxygen; Z85.72 Personal history of non-Hodgkin lymphomas; Z11.52 Encounter for screening for COVID-19
CPT/HCPCS: 0241U; 36415; 71045; 80048; 80053; 82803; 82947; 83735; 83880; 84145; 84484; 85025; 93005; 93010; 93306; 94640; 94644; 94660; 94664; 94760; 94762; 96365; 96367; 99285-25; A9270; C9113; J0456; J0696; J1650; J2930; J3475; J7030; J7050

== ENCOUNTER 2024-03-10 13:26 | Inpatient (IN) | payer OTHER ==
[~2024-03-10] VITALS: Ht 157.5 cm; Wt 82.5 kg
[~2024-03-10 13:26] MED LIST changes: -ARIP15; +ARIP15 PO; +AZIT500 PO; +B-12500 MC2 PO; +BENZ100A PO; +CEFD300 PO; +CENTRUM SILVER1 EAC2 PO; +GUAI600T33 PO; +IPRAT-ALBUT 0.5-3 ML INH; +Prednisone10 MG PO; +RAYOS PO; +SPIRIVA RESPIMAT4 G3 IH; +SYMBICORT 160-4.6 GM; +Sanctura20 MG PO
[2024-03-10] MEDS ORDERED: Magnesium Sulf 2 GM/Water 50ML 50 ML IV ONE (13:50)
[2024-03-10 13:55] LABS: BASOPHILS ABSOLUTE AUTO 0.04 K/mm3 (0.00-0.23); BASOPHILS PERCENT AUTO 0 % (0-2); EOSINOPHILS ABSOLUTE AUTO 0.22 K/mm3 (0.00-0.68); EOSINOPHILS PERCENT AUTO 2 % (0-6); Hemoglobin 12.5 g/dL (11.5-16.0); IMMATURE GRAN ABSOLUTE AUTO 0.05 K/mm3 (0.00-0.10); IMMATURE GRAN PERCENT AUTO 1 % (0-1); LYMPHOCYTES PERCENT AUTO 28 % (21-46); MONOCYTES ABSOLUTE AUTO 0.55 K/mm3 (0.16-1.47); MONOCYTES PERCENT AUTO 6 % (4-13); Mean Corpuscular HGB 30.5 pg (26.0-34.0); Mean Corpuscular HGB Conc 32.1 g/dL (31.5-36.5); Mean Corpuscular Volume 95 fL (80-100); NEUTROPHILS ABSOLUTE AUTO 5.88 K/mm3 (1.96-9.15); NEUTROPHILS PERCENT AUTO 63 % (41-73); Platelet Count 249 K/mm3 (150-400); RDW Coefficient Variation 15.7 % (11.7-14.2); RDW Standard Deviation 54.5 fL (35.1-46.3); White Blood Cell Count 9.34 K/mm3 (4.00-11.30)
[2024-03-10] MEDS ORDERED: Albuterol 2.5 MG/3 ML VIAL INH SCH (13:55)
[2024-03-10 13:57] LABS: Base Excess Venous 17.6 mmol/L; Bicarbonate Venous 37.8 mmol/L (24.0-30.0); pH Blood Venous 7.37 (7.34-7.37)
[2024-03-10 14:13] LABS: Albumin, Blood 3.7 g/dL (3.4-5.0); Bilirubin, Total 0.4 mg/dL (0.1-1.0); Bun/Creatinine Ratio 13.4 (12.0-20.0); Calcium, Blood 9.5 mg/dL (8.5-10.1); Creatinine, Blood 0.6 mg/dL (0.40-1.00); Globulin, Blood 3.6 g/dL (2.2-4.0); Potassium, Blood 3.4 mmol/L (3.5-5.5); Total Protein, Blood 7.3 g/dL (6.4-8.2)
[2024-03-10] MEDS ORDERED: Furosemide 10 MG / ML 2ML Vial IV ONE (14:40)
[2024-03-10] MEDS ORDERED: Azithromycin 250 MG Tab PO ONE (15:15)
[2024-03-10 16:25] LABS: Influenza A, PCR NEGATIVE (NEGATIVE); Influenza B, PCR NEGATIVE (NEGATIVE); Resp Syncytial Virus, PCR NEGATIVE (NEGATIVE); SARS-Cov-2 (COVID-19) PCR, MMC NEGATIVE (NEGATIVE)
[2024-03-10] MEDS ORDERED: FLU VACC TS2024-25(6MOS UP)/PF 45 MCG/0.5 ML SYRINGE IM PRN (16:40)
[2024-03-10] MEDS ORDERED: Ipratropium/Albuterol SulF 2.5-0.5MG/3 ML Amp INH SCH (16:40)
[2024-03-10] MEDS ORDERED: Albuterol 2.5 MG/3 ML VIAL INH PRN (16:45)
[2024-03-10] MEDS ORDERED: Potassium Chl 20MEQ/Water100ML 100 ML IV SCH (17:00)
[2024-03-10] MEDS ORDERED: MethylPREDNISolone Sod Succ 125 MG Vial IV SCH (18:00)
[2024-03-10 18:01] VITALS: BP 150/73
[2024-03-10 18:01] LABS: Magnesium, Blood 2.4 mg/dL (1.6-2.4)
[2024-03-10 18:03] LABS: Thyroid Stimulating Hormone 0.358 uIU/mL (0.360-4.800)
[2024-03-10] MEDS ORDERED: NS 500 ML IV SCH (18:10)
[2024-03-10] MEDS ORDERED: TraZODone HCl 100 MG Tab PO PRN (18:10)
--- NOTE | 2024-03-10 18:22 | NUR ---
NURSE NOTE PATIENT ARRIVES FROM THE ED ON A GURNAY, SLIDE OVER TO PCU BED WITH THE ASSISTANCE OF 3 STAFF MEMBERS. PATIENT ABLE TO ROLL/ MOVE AROUND IN BED. PATIENT IS CURRENTLY ON HER HOME O2 OF 3 LITERS VIA NC. SATURATION OF 95%. SINUS TACH AT 106. PATIENT ORIENTED TO THE UNIT, AND CALL LIGHT, PATIENT SITTING UP IN BED EATING DINNER, ABLE TO FEED SELF AND DRINK FROM STRAW. PATIENT STATES SHE FEELS MUCH BETTER THEN SHE DID ON ARRIVAL. CALL LIGHT IN REACH.
[2024-03-10 20:02] VITALS: BP 137/70
[2024-03-10] MEDS ORDERED: ARIPiprazole 10 MG Tab PO SCH (21:00)
[2024-03-10] MEDS ORDERED: LamoTRIgine 100 MG Tab PO SCH (21:00)
[2024-03-10] MEDS ORDERED: Apixaban 5 MG Tab PO SCH (21:00)
[2024-03-10] MEDS ORDERED: Acetaminophen 325 MG TABLET PO PRN (22:10)
[2024-03-11 00:17] VITALS: BP 96/83
[2024-03-11 03:58] LABS: BASOPHILS ABSOLUTE AUTO 0.02 K/mm3 (0.00-0.23); BASOPHILS PERCENT AUTO 0 % (0-2); EOSINOPHILS PERCENT AUTO 0 % (0-6); Hematocrit 36.5 % (33.0-51.0); Hemoglobin 11.4 g/dL (11.5-16.0); IMMATURE GRAN ABSOLUTE AUTO 0.05 K/mm3 (0.00-0.10); IMMATURE GRAN PERCENT AUTO 1 % (0-1); LYMPHOCYTES ABSOLUTE AUTO 0.51 K/mm3 (0.84-5.20); LYMPHOCYTES PERCENT AUTO 7 % (21-46); MONOCYTES ABSOLUTE AUTO 0.14 K/mm3 (0.16-1.47); MONOCYTES PERCENT AUTO 2 % (4-13); Mean Corpuscular HGB 29.8 pg (26.0-34.0); Mean Corpuscular HGB Conc 31.2 g/dL (31.5-36.5); Mean Corpuscular Volume 96 fL (80-100); Mean Platelet Volume 10.4 fL (9.1-12.4); NEUTROPHILS ABSOLUTE AUTO 6.95 K/mm3 (1.96-9.15); NEUTROPHILS PERCENT AUTO 91 % (41-73); Platelet Count 214 K/mm3 (150-400); RDW Coefficient Variation 15.7 % (11.7-14.2); RDW Standard Deviation 54.6 fL (35.1-46.3); Red Blood Cell Count 3.82 M/mm3 (3.80-5.20); White Blood Cell Count 7.67 K/mm3 (4.00-11.30)
[2024-03-11 04:30] LABS: Albumin, Blood 3.3 g/dL (3.4-5.0); Bilirubin, Total 0.2 mg/dL (0.1-1.0); Bun/Creatinine Ratio 21.3 (12.0-20.0); Calcium, Blood 9.3 mg/dL (8.5-10.1); Creatinine, Blood 0.61 mg/dL (0.40-1.00); Globulin, Blood 3.2 g/dL (2.2-4.0); Potassium, Blood 3.9 mmol/L (3.5-5.5); Total Protein, Blood 6.5 g/dL (6.4-8.2)
[2024-03-11 04:42] VITALS: BP 104/51
--- NOTE | 2024-03-11 05:38 | NUR ---
SHIFT SUMMARY ASSUMED CARE OF PT AT 1900. PT A&O4 AND COOPERATIVE IN CARE AND ADMISSION ASSESSMENT. PT CURRENTLY DENIES SOB AND CP. VSS AND PT REMAINED ON 2LNC SITTING UPRIGHT THROUGHOUT THE NIGHT. NO CARDIAC OR RESPIRATORY EVENTS OVERNIGHT. PT'S BED IN LOWEST POSITION AND CALL LIGHT WITHIN REACH.
[2024-03-11 07:31] VITALS: BP 145/87
[2024-03-11] MEDS ORDERED: Potassium Chloride 10 Meq Tablet SA PO ONE (07:40)
[2024-03-11] MEDS ORDERED: Venlafaxine HCl 75 MG CapCR PO SCH (09:00)
[2024-03-11] MEDS ORDERED: Azithromycin 500 MG in NS 250 ML IV SCH (09:00)
[2024-03-11] MEDS ORDERED: Enoxaparin 40 MG/0.4 ML SYR SC SCH (09:00)
--- NOTE | 2024-03-11 10:54 | NUR ---
Upon receiving a referral for spiritual care, I visited the patient. She tells me about her medical problems and the clinical plan moving forward. She shares about her Adventism julianna, her family and friend support and general belief that things will work out. She explains about her 40 yr smoking habit and how she is paying for it today (both for heart and lung issues). I provided therapeutic listening and prayer. Patient repsonded well and showed signs of increased peace. I will continue to remain available to patient and family.
[2024-03-11] MEDS ORDERED: ALBU90OI INH (12:14)
[2024-03-11] MEDS ORDERED: MethylPREDNISolone Sod Succ 125 MG Vial IV SCH (16:00)
[2024-03-11 16:21] VITALS: BP 116/69
--- NOTE | 2024-03-11 16:37 | NUR ---
END OF SHIFT NOTE: NO ACUTE EVENTS THIS SHIFT. PT A/OX4, ABLE TO CALL APPROPRIATELY & COMMUNICATE NEEDS W/ STAFF. HR 100'S, SINUS TACH ON TELE. SBP 110-140'S, DENIES CHEST PAIN/PRESSURE. SPO2 88-92% ON 4L VIA NC. DESATS INTO 80'S W/ EXERTION BUT ABLE TO RECOVER QUICKLY. COUGH HAS BECOME PRODUCTIVE THIS AFTERNOON; PT PRODUCING MODERATE AMOUNT OF THICK GREEN SPUTUM. AFEBRILE. ABLE TO TRANSFER TO [facility] W/ 1P SBA FOR LINE MANAGEMENT. INDEPENDENT W/ REPOSITIONING & OTHER ADL'S. TOLERATING PO INTAKE WELL. SCD'S IN PLACE FOR DVT PROPHYLAXIS. NO OTHER NEEDS AT THIS TIME. CALL LIGHT IN REACH. REPORT TO ANJELICA CLEVELAND TO ASSUME CARE OF PT FOR REMAINDER OF SHIFT.
--- NOTE | 2024-03-11 16:45 | NUR ---
Report received from Yudith CLEVELAND at this time.
[2024-03-11 20:59] VITALS: BP 130/90
[2024-03-12] MEDS ORDERED: Trospium Chloride 20 MG Tab PO SCH ×2 (00:25→09:00)
[2024-03-12 00:46] VITALS: BP 109/80
[2024-03-12 03:47] VITALS: BP 161/84
[2024-03-12 04:19] LABS: BASOPHILS ABSOLUTE AUTO 0.02 K/mm3 (0.00-0.23); BASOPHILS PERCENT AUTO 0 % (0-2); EOSINOPHILS PERCENT AUTO 0 % (0-6); Hematocrit 34.9 % (33.0-51.0); Hemoglobin 10.9 g/dL (11.5-16.0); IMMATURE GRAN ABSOLUTE AUTO 0.07 K/mm3 (0.00-0.10); IMMATURE GRAN PERCENT AUTO 1 % (0-1); LYMPHOCYTES ABSOLUTE AUTO 0.72 K/mm3 (0.84-5.20); LYMPHOCYTES PERCENT AUTO 5 % (21-46); MONOCYTES ABSOLUTE AUTO 0.36 K/mm3 (0.16-1.47); MONOCYTES PERCENT AUTO 2 % (4-13); Mean Corpuscular HGB 30.2 pg (26.0-34.0); Mean Corpuscular HGB Conc 31.2 g/dL (31.5-36.5); Mean Corpuscular Volume 97 fL (80-100); Mean Platelet Volume 10.4 fL (9.1-12.4); NEUTROPHILS ABSOLUTE AUTO 13.67 K/mm3 (1.96-9.15); NEUTROPHILS PERCENT AUTO 92 % (41-73); Platelet Count 223 K/mm3 (150-400); RDW Coefficient Variation 15.7 % (11.7-14.2); RDW Standard Deviation 55.8 fL (35.1-46.3); Red Blood Cell Count 3.61 M/mm3 (3.80-5.20); White Blood Cell Count 14.84 K/mm3 (4.00-11.30)
[2024-03-12 04:51] LABS: Albumin, Blood 3.2 g/dL (3.4-5.0); Bilirubin, Total 0.2 mg/dL (0.1-1.0); Bun/Creatinine Ratio 27.3 (12.0-20.0); Calcium, Blood 9.4 mg/dL (8.5-10.1); Creatinine, Blood 0.77 mg/dL (0.40-1.00); Globulin, Blood 3.1 g/dL (2.2-4.0); Potassium, Blood 4.2 mmol/L (3.5-5.5); Total Protein, Blood 6.3 g/dL (6.4-8.2)
[2024-03-12] MEDS ORDERED: Benzonatate 100 MG Cap PO PRN (05:10)
[2024-03-12 07:30] VITALS: BP 131/74
[2024-03-12] MEDS ORDERED: Insulin Human Regular 100 UNIT/ML 10ML Vial SC SCH (07:30)
[2024-03-12 08:33] LABS: BASOPHILS ABSOLUTE AUTO 0.02 K/mm3 (0.00-0.23); BASOPHILS PERCENT AUTO 0 % (0-2); EOSINOPHILS PERCENT AUTO 0 % (0-6); Hematocrit 38.2 % (33.0-51.0); Hemoglobin 11.8 g/dL (11.5-16.0); IMMATURE GRAN ABSOLUTE AUTO 0.07 K/mm3 (0.00-0.10); IMMATURE GRAN PERCENT AUTO 1 % (0-1); LYMPHOCYTES ABSOLUTE AUTO 0.79 K/mm3 (0.84-5.20); LYMPHOCYTES PERCENT AUTO 6 % (21-46); MONOCYTES ABSOLUTE AUTO 0.33 K/mm3 (0.16-1.47); MONOCYTES PERCENT AUTO 2 % (4-13); Mean Corpuscular HGB 29.8 pg (26.0-34.0); Mean Corpuscular HGB Conc 30.9 g/dL (31.5-36.5); Mean Corpuscular Volume 97 fL (80-100); Mean Platelet Volume 10.4 fL (9.1-12.4); NEUTROPHILS ABSOLUTE AUTO 12.86 K/mm3 (1.96-9.15); NEUTROPHILS PERCENT AUTO 92 % (41-73); Platelet Count 229 K/mm3 (150-400); RDW Coefficient Variation 15.9 % (11.7-14.2); RDW Standard Deviation 56.9 fL (35.1-46.3); Red Blood Cell Count 3.96 M/mm3 (3.80-5.20); White Blood Cell Count 14.07 K/mm3 (4.00-11.30)
[2024-03-12] MEDS ORDERED: Insulin Human Lispro 100 Units/ML 3ML Syringe SC SCH ×2 (11:30→12:30)
[2024-03-12] MEDS ORDERED: Insulin Regular 100 UNIT/ML 10ML Vial SC SCH (12:00)
--- NOTE | 2024-03-12 12:02 | NUR ---
Patient is sitting up in bed and alert. Her SO is bedside. Patient tells me about the clinical plan for the day and the possibility of returning home soon if she continues to improve. They talk about their upcoming move from [place] to her dtr's house in [place]. She voices her approval of the plan but does have concerns about her level of stregth and mobility once she will D/C. I provided gentle quitline counselor and prayer. PAtient responded well and showed signs of reduced stress.
[2024-03-12 12:19] VITALS: BP 131/79
[2024-03-12] MEDS ORDERED: Loratadine 10 MG Tab PO SCH (15:25)
[2024-03-12] MEDS ORDERED: Loratadine 5 MG/5 ML 5MLUDC PO SCH (16:00)
[2024-03-12] MEDS ORDERED: Omeprazole 20 MG CapCR PO SCH (16:00)
--- NOTE | 2024-03-12 17:41 | NUR ---
SPO2 97%. Oxygen delivery reduced to 3 l/min.
--- NOTE | 2024-03-12 18:03 | NUR ---
SUMMARY The pt has been alert, oriented and pleasant. Good appetite, voiding and passing stool. She has been using the BSC and is dyspneic and tachycardic up to 122 bpm with the activity. Using 3.5 l/min O2 this morning, now 3 l/min which is her baseline at home. Very coarse lung sounds, and moist cough with occasional production of han sputum. Had a headache this afternoon from all the coughing and resoved with Tylenol. Spent most of the day either sitting on the side of the bed or lying in her bed.
[2024-03-12 19:36] VITALS: BP 156/85
[2024-03-13 03:43] VITALS: BP 137/86
[2024-03-13 03:59] LABS: BASOPHILS ABSOLUTE AUTO 0.01 K/mm3 (0.00-0.23); BASOPHILS PERCENT AUTO 0 % (0-2); EOSINOPHILS PERCENT AUTO 0 % (0-6); Hematocrit 36.4 % (33.0-51.0); Hemoglobin 11.4 g/dL (11.5-16.0); IMMATURE GRAN ABSOLUTE AUTO 0.14 K/mm3 (0.00-0.10); IMMATURE GRAN PERCENT AUTO 1 % (0-1); LYMPHOCYTES ABSOLUTE AUTO 0.56 K/mm3 (0.84-5.20); LYMPHOCYTES PERCENT AUTO 5 % (21-46); MONOCYTES ABSOLUTE AUTO 0.24 K/mm3 (0.16-1.47); MONOCYTES PERCENT AUTO 2 % (4-13); Mean Corpuscular HGB 30.4 pg (26.0-34.0); Mean Corpuscular HGB Conc 31.3 g/dL (31.5-36.5); Mean Corpuscular Volume 97 fL (80-100); Mean Platelet Volume 10.5 fL (9.1-12.4); NEUTROPHILS ABSOLUTE AUTO 10.78 K/mm3 (1.96-9.15); NEUTROPHILS PERCENT AUTO 92 % (41-73); Platelet Count 212 K/mm3 (150-400); RDW Coefficient Variation 15.9 % (11.7-14.2); RDW Standard Deviation 56.5 fL (35.1-46.3); Red Blood Cell Count 3.75 M/mm3 (3.80-5.20); White Blood Cell Count 11.73 K/mm3 (4.00-11.30)
[2024-03-13 04:24] LABS: Albumin, Blood 3.3 g/dL (3.4-5.0); Bilirubin, Total 0.2 mg/dL (0.1-1.0); Bun/Creatinine Ratio 29.9 (12.0-20.0); Calcium, Blood 9.3 mg/dL (8.5-10.1); Creatinine, Blood 0.67 mg/dL (0.40-1.00); Globulin, Blood 3.2 g/dL (2.2-4.0); Potassium, Blood 4.1 mmol/L (3.5-5.5); Total Protein, Blood 6.5 g/dL (6.4-8.2)
--- NOTE | 2024-03-13 05:30 | NUR ---
SHIFT SUMMARY ASSUMED CARE OF PT AT 1900. PT IS A/OX4. HEART SOUNDS REGULAR. LUNG SOUNDS HAVE EXPIRATORY WHEEZES. PT REMAINED ON 3L NC. PT HAD AN EPISODE OF ESATURATION TO 70S BUT PT DIDNT REALIZE O2 WAS OUT OF NOSE. PT RECOVERED WELL. PT WAS A 1P SBA WITH CORDS TO BATHROOM. PT C/O SOFT BM. AND WAS INCONTINENT AND CONTINENT. PT RESTED WITH EYES CLOSED.
[2024-03-13 08:13] VITALS: BP 137/78
[2024-03-13 11:51] VITALS: BP 127/80
[2024-03-13] MEDS ORDERED: ELIQUIS5 M2 PO (14:11)
[2024-03-13] MEDS ORDERED: BREZTRI AEROS10.7 GM INH (14:16)
[2024-03-13] MEDS ORDERED: LEVFLO500 PO (14:17)
[2024-03-13] MEDS ORDERED: Prednisone10 MG PO (14:17)
--- NOTE | 2024-03-13 15:06 | NUR ---
SHIFT/DISCHARGE SUMMARY: PATIENT A/OX4, PLEASANT AND COOPERATIVE c CARE. PATIENT DENIES CP/PRESSURE, SOB, N/V AND DIZZINESS. PATIENT ON TELE, SR/ST HR IN THE HIGH 90'S TO LOW 100'S BPM. PATIENT ON 3L O2 AT BASELINE. PATIENT RECEIVED SCHEDULED MEDS PER EMAR. VITAL SIGNS REVIEWED. PATIENT HAS GOOD APPETITE, CONTINENT OF BLADDER, USES BSC c SBA. PATIENT HAS NO COMPLAINT OR DENIES NEW CONCERNED THIS SHIFT. PIV TO R FOREARM DC'D. PATIENT DISCHARGE HOME c GARY PER ORDER. DISCHARGE INSTRUCTIONS PACKET GIVEN TO PATIENT. EDUCATED PATIENT REGARDING ADMITTING DX'S OF COPD EXAC, S/S, TX, ZIO PATCH CARE, SELF CARE, NEW RX AND TO F/U c PCP. PATIENT VERBALIZED UNDERSTANDING AND NO FURTHER QUESTIONS. RX WAS FAXED TO PATIENT PREFERRED PHARMACY-[facility]. ALL PATIENT PERSONAL BELONGINGS WERE SENT HOME c THE PATIENT. PATIENT LEFT THE ROOM AT 1500, TRANSPORTED VIA WHEELCHAIR BY BAKARI TOBAR TO PATIENT ENTRANCE.
== END 2024-03-13 14:56 | disposition home or self-care (01) | DRG 189 ==
LOC: ER 13:26 → MEDS 13:27 → PCU 17:56
PROVIDERS: Family Medicine; Student in an Organized Health Care Education/Training Program; ADMIT Family Medicine
PROC: 5A09357 Assistance with Respiratory Ventilation, Less than 24 Consecutive Hours, Continuous Positive Airway Pressure (ICD-10-PCS; principal; 2024-03-10)
DX: J96.21 Acute and chronic respiratory failure with hypoxia (principal); I50.31 Acute diastolic (congestive) heart failure; J44.1 Chronic obstructive pulmonary disease with (acute) exacerbation; E87.3 Alkalosis; J96.22 Acute and chronic respiratory failure with hypercapnia; F31.9 Bipolar disorder, unspecified; R73.9 Hyperglycemia, unspecified; G47.33 Obstructive sleep apnea (adult) (pediatric); G43.909 Migraine, unspecified, not intractable, without status migrainosus; K21.9 Gastro-esophageal reflux disease without esophagitis; I48.0 Paroxysmal atrial fibrillation; Z87.891 Personal history of nicotine dependence; E87.6 Hypokalemia; D72.829 Elevated white blood cell count, unspecified; F43.10 Post-traumatic stress disorder, unspecified; Z85.72 Personal history of non-Hodgkin lymphomas; Z88.5 Allergy status to narcotic agent; Z88.8 Allergy status to other drugs, medicaments and biological substances; Z79.899 Other long term (current) drug therapy; Z98.890 Other specified postprocedural states
CPT/HCPCS: 0241U; 36415; 71045; 80053; 82803; 82947; 83735; 83880; 84145; 84439; 84443; 85025; 93005; 93010; 93246; 93306; 94640; 94644; 94660; 94664; 94762; 96365; 96375; 96376; 99285-25; A9270; G0378; J0456; J1940; J2919; J3475; J3480; J7040; J7050

== ENCOUNTER 2024-05-16 22:31 | Inpatient (IN) | payer OTHER ==
[~2024-05-16] VITALS: Ht 157.5 cm; Wt 77.8 kg
[~2024-05-16 22:31] MED LIST changes: +ALBU90OI INH; +BREZTRI AEROS10.7 GM INH; +ELIQUIS5 M2 PO; +LEVFLO500 PO
[2024-05-16] MEDS ORDERED: Ipratropium/Albuterol SulF 2.5-0.5MG/3 ML Amp INH ONE (22:35)
[2024-05-16] MEDS ORDERED: Albuterol 2.5 MG/3 ML VIAL INH SCH (22:35)
[2024-05-16] MEDS ORDERED: MethylPREDNISolone Sod Succ 125 MG Vial IV ONE (22:40)
[2024-05-16] MEDS ORDERED: Azithromycin 250 MG Tab PO ONE (22:45)
[2024-05-16 22:58] LABS: BASOPHILS ABSOLUTE AUTO 0.03 K/mm3 (0.00-0.23); BASOPHILS PERCENT AUTO 0 % (0-2); EOSINOPHILS ABSOLUTE AUTO 0.37 K/mm3 (0.00-0.68); EOSINOPHILS PERCENT AUTO 6 % (0-6); Hematocrit 38.6 % (33.0-51.0); Hemoglobin 12.6 g/dL (11.5-16.0); IMMATURE GRAN ABSOLUTE AUTO 0.02 K/mm3 (0.00-0.10); IMMATURE GRAN PERCENT AUTO 0 % (0-1); LYMPHOCYTES ABSOLUTE AUTO 1.72 K/mm3 (0.84-5.20); LYMPHOCYTES PERCENT AUTO 26 % (21-46); MONOCYTES ABSOLUTE AUTO 0.45 K/mm3 (0.16-1.47); MONOCYTES PERCENT AUTO 7 % (4-13); Mean Corpuscular HGB 30.5 pg (26.0-34.0); Mean Corpuscular HGB Conc 32.6 g/dL (31.5-36.5); Mean Corpuscular Volume 94 fL (80-100); Mean Platelet Volume 10.7 fL (9.1-12.4); NEUTROPHILS ABSOLUTE AUTO 4.13 K/mm3 (1.96-9.15); NEUTROPHILS PERCENT AUTO 62 % (41-73); Platelet Count 184 K/mm3 (150-400); RDW Standard Deviation 44.5 fL (35.1-46.3); Red Blood Cell Count 4.13 M/mm3 (3.80-5.20); White Blood Cell Count 6.72 K/mm3 (4.00-11.30)
[2024-05-16 23:00] LABS: PCO2 Venous 65.2 mmHg (38-42); pH Blood Venous 7.41 (7.34-7.37)
[2024-05-16 23:01] LABS: Base Excess Venous 16.9 mmol/L; Bicarbonate Venous 37.9 mmol/L (24.0-30.0)
[2024-05-16 23:18] LABS: Albumin, Blood 3.8 g/dL (3.4-5.0); Albumin/Globulin Ratio 1.2 (0.8-1.8); Bilirubin, Total 0.2 mg/dL (0.1-1.0); Calcium, Blood 9.6 mg/dL (8.5-10.1); Creatinine, Blood 0.61 mg/dL (0.40-1.00); Globulin, Blood 3.3 g/dL (2.2-4.0); Magnesium, Blood 2.3 mg/dL (1.6-2.4); Potassium, Blood 3.7 mmol/L (3.5-5.5); Total Protein, Blood 7.1 g/dL (6.4-8.2)
[2024-05-16 23:35] LABS: Influenza A, PCR NEGATIVE (NEGATIVE); Influenza B, PCR NEGATIVE (NEGATIVE); Resp Syncytial Virus, PCR NEGATIVE (NEGATIVE); SARS-Cov-2 (COVID-19) PCR, MMC NEGATIVE (NEGATIVE)
[2024-05-17] MEDS ORDERED: Ipratropium/Albuterol SulF 2.5-0.5MG/3 ML Amp INH SCH (00:25)
[2024-05-17] MEDS ORDERED: FLU VACC TS2024-25(6MOS UP)/PF 45 MCG/0.5 ML SYRINGE IM ONE (00:30)
[2024-05-17] MEDS ORDERED: MethylPREDNISolone Sod Succ 125 MG Vial IV ONE (01:20)
[2024-05-17] MEDS ORDERED: Azithromycin 250 MG Tab PO ONE (01:20)
[2024-05-17 03:03] VITALS: BP 139/71
[2024-05-17] MEDS ORDERED: Albuterol 2.5 MG/3 ML VIAL INH PRN (03:25)
--- NOTE | 2024-05-17 05:15 | NUR ---
ADMIT NOTE FOR 05/17/24 AT 0247 AND SHIFT SUMMARY REPORT WAS RECIEVED FROM THE ER AND PT WAS BROUGHT DOWN ON THE GURNEY TO ROOM 343. PT ALERT ORIENTED X 4 CALLS APPROPRIATELY. NO C/O PAIN VSS ON 3L VIA NC SATTING AT 92%. SHE REMAINS ON 3L VIA NC WHICH IS BASELINE FOR HER. SHES HERE FOR COPD EXACERBATION. SHE WAS ORIENTED TO THE ROOM AND STAFF. SHE GETS UP TO COMMODE WITH 1 PERSON SBA. SHE DOES GET SOB WITH ACTIVITY. SHE REMAINS ON TELEMETRY AT AT A RATE OF 108. NO C/O CHEST PAIN OR PRESSURE. SHE HAS REDNESS WITH EXCORIATION TO HER BUTTOCKS AND COCCYX, REDNESS TO LT ABDOMINAL FOLD AND SCATTERED BRUISES TO BILATERAL ARMS. SHE WAS GIVEN A DOSE OF ZITHROMAX IN THE ER AND CONTINUES ON SOLUMEDROL Q8HR. SHES RESTING IN BED AT THIS TIME WITH CALL LIGHT IN REACH
[2024-05-17 06:02] LABS: Adenovirus Not Detected (NOT DETECT); Bordetella pertussis Not Detected (NOT DETECT); Chlamydophila pneumoniae Not Detected (NOT DETECT); Coronavirus 229E Not Detected (NOT DETECT); Coronavirus HKU1 Not Detected (NOT DETECT); Coronavirus NL63 Not Detected (NOT DETECT); Coronavirus OC43 Not Detected (NOT DETECT); Human Metapneumovirus Not Detected (NOT DETECT); Human Rhinovirus/Enterovirus Not Detected (NOT DETECT); Influenza A/2009-H1 Not Detected (NOT DETECT); Influenza A/H1 Not Detected (NOT DETECT); Influenza A/H3 Not Detected (NOT DETECT); Influenza B Not Detected (NOT DETECT); Mycoplasma pneumoniae Not Detected (NOT DETECT); Parainfluenza Virus 1 Not Detected (NOT DETECT); Parainfluenza Virus 2 Not Detected (NOT DETECT); Parainfluenza Virus 3 Not Detected (NOT DETECT); Parainfluenza Virus 4 Not Detected (NOT DETECT); Respiratory Syncytial Virus Not Detected (NOT DETECT); SARS-Cov-2 (COVID-19), BioFire Not Detected (NOT DETECT)
[2024-05-17] MEDS ORDERED: MethylPREDNISolone Sod Succ 125 MG Vial IV SCH (08:00)
[2024-05-17 08:04] VITALS: BP 141/70
[2024-05-17] MEDS ORDERED: Enoxaparin 40 MG/0.4 ML SYR SC SCH (09:00)
[2024-05-17] MEDS ORDERED: [UNRECOGNIZED DRUG - OTHER] PO (09:25)
--- NOTE | 2024-05-17 09:47 | NUR ---
PHYSICIAN CONTACT CALLED DR BRYSON REGARDING C/O HEADACHE, OKAYED TO ORDER HOME DOSING OF EXCEDRINE.
[2024-05-17] MEDS ORDERED: Acetaminophen/Aspirin/Caffeine 250/250/65 MG PO PRN (09:50)
[2024-05-17] MEDS ORDERED: BREZTRI INH SCH (10:30)
[2024-05-17] MEDS ORDERED: Venlafaxine HCl 75 MG CapCR PO SCH (12:40)
[2024-05-17] MEDS ORDERED: Omeprazole 20 MG CapCR PO SCH (12:40)
[2024-05-17 15:46] VITALS: BP 147/74
[2024-05-17] MEDS ORDERED: Trospium Chloride 20 MG Tab PO SCH (16:30)
--- NOTE | 2024-05-17 18:15 | NUR ---
SHIFT SUMMARY PATIENT ABLE TO USE BSC THIS SHIFT, DYSPNIC WITH LITTLE EXERTION, ON 3 LITERS NC. EXPERIENCING BLOODY NOSES THIS SHIFT, HUMIDIFIER ADDED TO TUBING. LUBRICANT APPLIED TO NARES AND ICE PACK TO BACK OF NECK. C/O HEADACHE THIS SHIFT, EXCEDRINE ADMIN PER MAR. EDUCATED REGARDING ASPIRIN USE COMBINED WITH BLOOD THINNER MAY BE CAUSITIVE OF BLOODY NOSES. A/O X4. ABLE TO MAKE NEEDS KNOWN CALL LIGHT IN REACH,
[2024-05-17 20:07] VITALS: BP 151/83
[2024-05-17] MEDS ORDERED: Apixaban 5 MG Tab PO SCH (21:00)
[2024-05-17] MEDS ORDERED: ARIPiprazole 5 MG Tab PO SCH (21:00)
[2024-05-17] MEDS ORDERED: Famotidine 20 MG Tab PO SCH (21:00)
[2024-05-17] MEDS ORDERED: LamoTRIgine 100 MG Tab PO SCH (21:00)
[2024-05-17] MEDS ORDERED: TraZODone HCl 100 MG Tab PO SCH (21:00)
[2024-05-17] MEDS ORDERED: GuaiFENesin 600 MG TabCR PO SCH (21:00)
[2024-05-17] MEDS ORDERED: Albuterol 2.5 MG/3 ML VIAL INH SCH (23:55)
--- NOTE | 2024-05-18 05:08 | NUR ---
SHIFT SUMMARY PT ALERT ORIENTED CALLS APPROPRIATELY REQUIRES SBA TO GET UP TO THE COMMODE SHE GETS SOB WITH ANY EXERTION SHE STATED THAT HER HEADACHES DOING BETTER. REMAINS ON TELEMETRY AT NSR AT A RATE OF 91. REMAINS ON 3L VIA NC WHICH IS HER BASELINE. SHES SATTING AT 93% ON THE 3L. RESTING IN BED AT THIS TIME WITH CALL LIGHT IN REACH
[2024-05-18 05:15] VITALS: BP 139/80
[2024-05-18 05:57] LABS: BASOPHILS PERCENT AUTO 0 % (0-2); EOSINOPHILS PERCENT AUTO 0 % (0-6); Hematocrit 36.5 % (33.0-51.0); Hemoglobin 11.8 g/dL (11.5-16.0); IMMATURE GRAN ABSOLUTE AUTO 0.03 K/mm3 (0.00-0.10); IMMATURE GRAN PERCENT AUTO 0 % (0-1); LYMPHOCYTES PERCENT AUTO 7 % (21-46); MONOCYTES ABSOLUTE AUTO 0.17 K/mm3 (0.16-1.47); MONOCYTES PERCENT AUTO 2 % (4-13); Mean Corpuscular HGB 30.5 pg (26.0-34.0); Mean Corpuscular HGB Conc 32.3 g/dL (31.5-36.5); Mean Corpuscular Volume 94 fL (80-100); Mean Platelet Volume 10.9 fL (9.1-12.4); NEUTROPHILS ABSOLUTE AUTO 8.64 K/mm3 (1.96-9.15); NEUTROPHILS PERCENT AUTO 91 % (41-73); Platelet Count 189 K/mm3 (150-400); RDW Coefficient Variation 12.9 % (11.7-14.2); RDW Standard Deviation 44.5 fL (35.1-46.3); Red Blood Cell Count 3.87 M/mm3 (3.80-5.20); White Blood Cell Count 9.54 K/mm3 (4.00-11.30)
[2024-05-18] MEDS ORDERED: Omeprazole 20 MG CapCR PO SCH (06:00)
[2024-05-18 06:21] LABS: Bun/Creatinine Ratio 31.6 (12.0-20.0); Calcium, Blood 9.7 mg/dL (8.5-10.1); Creatinine, Blood 0.7 mg/dL (0.40-1.00); Potassium, Blood 3.9 mmol/L (3.5-5.5)
[2024-05-18 07:31] VITALS: BP 110/71
[2024-05-18] MEDS ORDERED: Venlafaxine HCl 75 MG CapCR PO SCH (09:00)
--- NOTE | 2024-05-18 11:54 | NUR ---
Patient is lying in bed and alert. She tells me about the cycle she is on of many hospital visits and that she feels like she is not able to manage well at home. She states that help with meals and cleaning would go along way in helping her to thrive. She orginally was thinking of moving in with her dtr but there are stair issues, pet issues and inconsistancey of care issues with that model. She shares about her spiritual journey and how she ahs had to lean into God for help more in the last couple yrs than she has her entire life. She also expresses her grief over the loss of many freedoms and her independance. I normalized her experience, reinforced helpful attitudes and practices and provided therapeutic listening and prayer. Patient responded well and showed signs an elevated mood and reduced stress.
[2024-05-18 16:28] VITALS: BP 127/96
--- NOTE | 2024-05-18 17:37 | NUR ---
NO CHANGES IN PT STATUS FOR THE SHIFT. PT HAS NO QUESTIONS OR CONCERNS AT THIS TIME
[2024-05-18 19:37] VITALS: BP 140/71
[2024-05-18] MEDS ORDERED: MethylPREDNISolone Sod Succ 125 MG Vial IV SCH (21:00)
[2024-05-18] MEDS ORDERED: TraZODone HCl 50 MG Tab PO ONE (23:05)
[2024-05-19 04:51] VITALS: BP 126/69
--- NOTE | 2024-05-19 05:29 | NUR ---
SHIFT SUMMARY NOC PT A/O X 4. PLEASANT AND COOPERATIVE WITH CARE. VSS. NO ACUTE CHANGES TO REPORT. PT STILL O2 3L/NC WHICH IS BASELINE SPO2 >92%. RECEIVED BID DOSE OF SOLU MED AT BEDTIME. HOME MEDICATION TRAZADONE CHANGED FROM 150 MG TO 300 MG AT BEDTIME PER PT HOME RX REC. ALL PT HOME RX NOW ORDERED. PT ON TELE SINUS TACH IN LOW 100'S. PT CURRENTLY RESTING WITH BED IN LOWEST POSITION, AND CALL LIGHT WITHIN REACH.
[2024-05-19 05:30] LABS: BASOPHILS ABSOLUTE AUTO 0.01 K/mm3 (0.00-0.23); BASOPHILS PERCENT AUTO 0 % (0-2); EOSINOPHILS PERCENT AUTO 0 % (0-6); Hematocrit 36.6 % (33.0-51.0); Hemoglobin 11.5 g/dL (11.5-16.0); IMMATURE GRAN ABSOLUTE AUTO 0.05 K/mm3 (0.00-0.10); IMMATURE GRAN PERCENT AUTO 1 % (0-1); LYMPHOCYTES ABSOLUTE AUTO 0.78 K/mm3 (0.84-5.20); LYMPHOCYTES PERCENT AUTO 7 % (21-46); MONOCYTES ABSOLUTE AUTO 0.46 K/mm3 (0.16-1.47); MONOCYTES PERCENT AUTO 4 % (4-13); Mean Corpuscular HGB 29.9 pg (26.0-34.0); Mean Corpuscular HGB Conc 31.4 g/dL (31.5-36.5); Mean Corpuscular Volume 95 fL (80-100); Mean Platelet Volume 10.6 fL (9.1-12.4); NEUTROPHILS ABSOLUTE AUTO 9.48 K/mm3 (1.96-9.15); NEUTROPHILS PERCENT AUTO 88 % (41-73); Platelet Count 186 K/mm3 (150-400); RDW Coefficient Variation 13.1 % (11.7-14.2); RDW Standard Deviation 45.3 fL (35.1-46.3); Red Blood Cell Count 3.85 M/mm3 (3.80-5.20); White Blood Cell Count 10.78 K/mm3 (4.00-11.30)
[2024-05-19 05:56] LABS: Bun/Creatinine Ratio 32.6 (12.0-20.0); Calcium, Blood 9.3 mg/dL (8.5-10.1); Creatinine, Blood 0.74 mg/dL (0.40-1.00); Potassium, Blood 4.2 mmol/L (3.5-5.5)
[2024-05-19 07:01] VITALS: BP 138/81
[2024-05-19] MEDS ORDERED: Ciprofloxacin 500 MG Tab PO SCH (10:00)
[2024-05-19] MEDS ORDERED: ATORVASTATIN CA20 MG PO (11:05)
[2024-05-19] MEDS ORDERED: VITAMIN D5000 UNIT PO (11:06)
[2024-05-19] MEDS ORDERED: VITAMIN B122500 MC1 PO (11:06)
[2024-05-19] MEDS ORDERED: CIPR500 PO (13:13)
[2024-05-19] MEDS ORDERED: PRED20 (13:24)
[2024-05-19] MEDS ORDERED: TRAZ100 PO (13:27)
[2024-05-19] MEDS ORDERED: [UNRECOGNIZED DRUG - OTHER] PO (13:34)
--- NOTE | 2024-05-19 14:26 | NUR ---
PT WAS DISHCARGED WITH INSTRUCTIONS. PT HAD NO QUESTIONS OR CONCERNS. ALL SCRIPTS SENT TO THE PHARMACY. ALL PIVS REMOVED FROM PT.
[2024-05-19] MEDS ORDERED: TraZODone HCl 100 MG Tab PO SCH (21:00)
== END 2024-05-19 14:25 | disposition home or self-care (01) | DRG 189 ==
LOC: ER 22:31 → ERHOLD 05-17 00:25 → MEDS 05-17 00:25
PROVIDERS: Internal Medicine; Student in an Organized Health Care Education/Training Program; ADMIT Internal Medicine
DX: J96.11 Chronic respiratory failure with hypoxia (principal); J44.1 Chronic obstructive pulmonary disease with (acute) exacerbation; F31.9 Bipolar disorder, unspecified; F43.10 Post-traumatic stress disorder, unspecified; G43.909 Migraine, unspecified, not intractable, without status migrainosus; F17.210 Nicotine dependence, cigarettes, uncomplicated; J96.12 Chronic respiratory failure with hypercapnia; E78.5 Hyperlipidemia, unspecified; I48.91 Unspecified atrial fibrillation; K21.9 Gastro-esophageal reflux disease without esophagitis; Z99.81 Dependence on supplemental oxygen; Z88.5 Allergy status to narcotic agent; Z88.8 Allergy status to other drugs, medicaments and biological substances; Z79.899 Other long term (current) drug therapy; Z79.51 Long term (current) use of inhaled steroids; Z79.01 Long term (current) use of anticoagulants; Z98.890 Other specified postprocedural states; Z87.828 Personal history of other (healed) physical injury and trauma; Z28.89 Immunization not carried out for other reason
CPT/HCPCS: 0202U; 0241U; 36415; 71045; 80048; 80053; 82803; 82947; 83735; 85025; 87070; 87077; 87147; 87186; 87205; 93005; 93010; 94640; 94644; 94664; 94760; 99285-25; A9270; J1650; J2919

== ENCOUNTER 2024-05-20 12:14 | Inpatient (IN) | payer OTHER ==
[~2024-05-20] VITALS: Ht 157.5 cm; Wt 79.2 kg
[~2024-05-20 12:14] MED LIST changes: +ATORVASTATIN CA20 MG PO; +CIPR500 PO; +PRED20; +VITAMIN B122500 MC1 PO; +VITAMIN D5000 UNIT PO; +[UNRECOGNIZED DRUG - OTHER] PO; +[UNRECOGNIZED DRUG - OTHER] PO
[2024-05-20 14:24] LABS: Hematocrit 37.9 % (33.0-51.0); Hemoglobin 12.1 g/dL (11.5-16.0); Mean Corpuscular HGB 30.4 pg (26.0-34.0); Mean Corpuscular HGB Conc 31.9 g/dL (31.5-36.5); Mean Corpuscular Volume 95 fL (80-100); Mean Platelet Volume 10.5 fL (9.1-12.4); Platelet Count 200 K/mm3 (150-400); RDW Coefficient Variation 13.2 % (11.7-14.2); RDW Standard Deviation 46.4 fL (35.1-46.3); Red Blood Cell Count 3.98 M/mm3 (3.80-5.20); White Blood Cell Count 20.08 K/mm3 (4.00-11.30)
[2024-05-20 14:36] LABS: Albumin, Blood 3.2 g/dL (3.4-5.0); Bilirubin, Total 0.5 mg/dL (0.1-1.0); Bun/Creatinine Ratio 24.4 (12.0-20.0); Calcium, Blood 8.9 mg/dL (8.5-10.1); Creatinine, Blood 0.78 mg/dL (0.40-1.00); Globulin, Blood 3.3 g/dL (2.2-4.0); Potassium, Blood 3.5 mmol/L (3.5-5.5); Total Protein, Blood 6.5 g/dL (6.4-8.2)
[2024-05-20 14:51] LABS: BAND PERCENT MAN 8 % (0-8); BASOPHILS PERCENT MAN 0 % (0-2); EOSINOPHILS PERCENT MAN 0 % (0-6); LYMPHOCYTES PERCENT MAN 6 % (21-46); MONOCYTES PERCENT MAN 3 % (4-13); NEUTROPHILS ABSOLUTE MAN 18.27 K/mm3 (1.96-9.15); SEG NEUTROPHILS PERCENT MAN 83 % (41-73); TOTAL CELLS COUNTED 100
[2024-05-20] MEDS ORDERED: Albuterol 2.5 MG/3 ML VIAL INH SCH (15:05)
[2024-05-20] MEDS ORDERED: MethylPREDNISolone Sod Succ 125 MG Vial IV ONE (15:05)
[2024-05-20 15:07] LABS: Base Excess Venous 14.2 mmol/L; PCO2 Venous 55.2 mmHg (38-42); pH Blood Venous 7.45 (7.34-7.37)
[2024-05-20 15:33] LABS: CORONAVIRUS COVID-19 AG Negative (NEGATIVE); INFLUENZA A AG Negative (NEGATIVE); INFLUENZA B AG Negative (NEGATIVE)
[2024-05-20] MEDS ORDERED: CefTRIAXone Sodium 1,000 MG in NS 50 ML IV ONE (16:10)
[2024-05-20] MEDS ORDERED: LORazepam 1 MG Tab PO ONE (16:20)
[2024-05-20] MEDS ORDERED: Lactated Ringer's 1,000 ML IV SCH (17:15)
[2024-05-20] MEDS ORDERED: Ipratropium/Albuterol SulF 2.5-0.5MG/3 ML Amp INH SCH (17:15)
[2024-05-20] MEDS ORDERED: Benzonatate 100 MG Cap PO PRN (17:15)
[2024-05-20] MEDS ORDERED: Ondansetron HCl 2 MG / ML 2ML Vial IV PRN (17:20)
[2024-05-20] MEDS ORDERED: Albuterol 2.5 MG/3 ML VIAL INH PRN (17:20)
[2024-05-20] MEDS ORDERED: Vancomycin HCL 1,500 MG in NS 250 ML IV ONE (17:25)
[2024-05-20] MEDS ORDERED: Azithromycin 500 MG in NS 250 ML IV SCH (18:00)
[2024-05-20 20:06] VITALS: BP 126/72
[2024-05-20] MEDS ORDERED: Lactobacil 2-S.Thermo-Bifido 1 1 Cap PO SCH (21:00)
[2024-05-20] MEDS ORDERED: GuaiFENesin 600 MG TabCR PO SCH (21:00)
--- NOTE | 2024-05-20 21:06 | NUR ---
PATIENT ARRIVED TO UNIT ON ED GURNEY AND WAS SLIDE OVER TO BED BY 3 STAFF MEMEBERS, PATIENT IS CURRENTLY ON 3 LITERS OF OXYGEN VIA NC WHICH IS HER BASELINE HOME O2. SATTING ABOVE 90% ON PULSE OX. SKIN CHECK DONE WITH SD CLEVELAND. SMALL RED BLANCABLE AREA ON COCCYX. PATIENT ORIENTATED TO ROOM AND CALL LIGHT, SNACKS PROVIDED, CALL LIGHT IN REACH.
[2024-05-20] MEDS ORDERED: Cefepime HCl 2,000 MG in NS 100 ML IV SCH (22:00)
[2024-05-20] MEDS ORDERED: Tiotropium Bromide 2.5 MCG/ACT MIST INHAL (10 ACT/4 GM) INH SCH (22:55)
[2024-05-20] MEDS ORDERED: TraZODone HCl 100 MG Tab PO SCH (23:30)
[2024-05-20] MEDS ORDERED: ARIPiprazole 5 MG Tab PO SCH (23:30)
[2024-05-20] MEDS ORDERED: Apixaban 5 MG Tab PO SCH (23:30)
[2024-05-20 23:59] VITALS: BP 133/70
[2024-05-21] MEDS ORDERED: MethylPREDNISolone Sod Succ 125 MG Vial IV SCH ×2
[2024-05-21 04:03] VITALS: BP 106/58
[2024-05-21 04:13] LABS: BASOPHILS ABSOLUTE AUTO 0.04 K/mm3 (0.00-0.23); BASOPHILS PERCENT AUTO 0 % (0-2); EOSINOPHILS PERCENT AUTO 0 % (0-6); Hematocrit 37.3 % (33.0-51.0); Hemoglobin 11.9 g/dL (11.5-16.0); IMMATURE GRAN ABSOLUTE AUTO 0.07 K/mm3 (0.00-0.10); IMMATURE GRAN PERCENT AUTO 1 % (0-1); LYMPHOCYTES ABSOLUTE AUTO 0.58 K/mm3 (0.84-5.20); LYMPHOCYTES PERCENT AUTO 4 % (21-46); MONOCYTES ABSOLUTE AUTO 0.34 K/mm3 (0.16-1.47); MONOCYTES PERCENT AUTO 2 % (4-13); Mean Corpuscular HGB 30.5 pg (26.0-34.0); Mean Corpuscular HGB Conc 31.9 g/dL (31.5-36.5); Mean Corpuscular Volume 96 fL (80-100); Mean Platelet Volume 10.4 fL (9.1-12.4); NEUTROPHILS ABSOLUTE AUTO 14.03 K/mm3 (1.96-9.15); NEUTROPHILS PERCENT AUTO 93 % (41-73); Platelet Count 176 K/mm3 (150-400); RDW Coefficient Variation 13.2 % (11.7-14.2); RDW Standard Deviation 46.5 fL (35.1-46.3); White Blood Cell Count 15.06 K/mm3 (4.00-11.30)
[2024-05-21] MEDS ORDERED: Omeprazole 20 MG CapCR PO SCH (06:00)
--- NOTE | 2024-05-21 06:16 | NUR ---
SHIFT SUMMARY PATIENT IS A+O X4, ABLE TO MAKE NEEDS KNOWN. SLEPT ON AND OFF MOST OF THE NIGHT, SLEEP W/ HOB ELEVATED. REMAINS ON 3 LITERS NC SATTING AT 93% AND ABOVE ON PULSE OX. VSS, SINUS RHYTHM ON TELE. HOME MEDICATIONS HAVE BEEN ORDERED. LR RUNNING AT 100MLS. DENIES PAIN DURING SHIFT. COUGH THAT IS AT TIMES PERDUCTIVE. CALL LIGHT IN REACH, WILL REPORT TO ONCOMING RN.
[2024-05-21 07:10] LABS: Albumin/Globulin Ratio 0.9 (0.8-1.8); Bilirubin, Total 0.4 mg/dL (0.1-1.0); Bun/Creatinine Ratio 27.2 (12.0-20.0); Creatinine, Blood 0.63 mg/dL (0.40-1.00); Globulin, Blood 3.4 g/dL (2.2-4.0); Magnesium, Blood 2.4 mg/dL (1.6-2.4); Potassium, Blood 3.8 mmol/L (3.5-5.5); Total Protein, Blood 6.4 g/dL (6.4-8.2)
[2024-05-21] MEDS ORDERED: Trospium Chloride 20 MG Tab PO SCH (07:30)
[2024-05-21] MEDS ORDERED: Vancomycin HCL 1,000 MG in NS 250 ML IV SCH (08:00)
[2024-05-21] MEDS ORDERED: Apixaban 5 MG Tab PO SCH (09:00)
[2024-05-21] MEDS ORDERED: Enoxaparin 40 MG/0.4 ML SYR SC SCH (09:00)
[2024-05-21] MEDS ORDERED: Venlafaxine HCl 75 MG CapCR PO SCH (09:00)
[2024-05-21] MEDS ORDERED: Cholecalciferol 1000 Unit Tablet (=25MCG) PO SCH (09:00)
[2024-05-21] MEDS ORDERED: Cyanocobalamin 500 MCG Tab PO SCH (09:00)
[2024-05-21] MEDS ORDERED: Atorvastatin 10 MG Tab PO SCH (09:00)
[2024-05-21] MEDS ORDERED: LORA.5 PO (09:35)
[2024-05-21 10:24] VITALS: BP 127/62
[2024-05-21] MEDS ORDERED: Insulin Human Lispro 100 Units/ML 3ML Syringe SC SCH (11:30)
--- NOTE | 2024-05-21 13:00 | NUR ---
TRANSFER TO [facility] PT A&Ox4, CALLS AND COMMUNICATES NEEDS APPROPRIATELY. VSS. REPORT GIVEN TO MEDICAL FLOOR RN. PT TRANSFERED VIA WHEELCHAIR BY CLINICAL STAFF WITH ALL PT BELONGINGS AT APPROXIAFLELY 1250.
--- NOTE | 2024-05-21 14:24 | NUR ---
"Spiritual Care Visit | Pt. Request Pt. is awake in bed and welcomes my visit. Pt. is known to this head of music from a previous hospitalization. Pt. is pleasant but unsttled by a discussion that she feels she needs to have with her sister. Pt. is concerned that she cannot expose herself to her sisters illness. Listen with empahty and a calming presence. Pt. displays evidence of trust and engagement. Prayed with pt. Pt. verbalized gratitude for the spiritual care visit."
--- NOTE | 2024-05-21 14:39 | NUR ---
PATIENT ARRIVED FROM PCU VIA WHEELCHAIR. PATIENT ON 3L OF O2 TO MAINTAIN SATS. PATIENT HAS IV IN LEFT AC RUNNING LR. PATIENT WAS ABLE TO WALK WITH FWW TO BED BUT REQUIRES 1 ASSIST. PATIENT ABLE TO CALL FOR ASSISTANCE. PATIENT HAS CALL LIGHT AT BEDSIDE AND CAN CALL FOR ASSIST
[2024-05-21 15:22] VITALS: BP 159/90
--- NOTE | 2024-05-21 17:06 | NUR ---
PATIENT A/O X 4. PATIENT WAS A TRANSFER FROM PCU MID-SHIFT. PATIENT HAS IV IN LEFT AC WHICH HAS LACTATED RINGERS RUNNING AT 100/HR. PATIENT IS NEW DIABETIC AND HAS NOT USED INSULIN IN THE PAST. PATIENT HAD LEFT HAND IV HOWEVER THIS WAS DISCONTINUED DUE TO INFILTRATION. PATIENT IS ABLE TO STAND WITH ONE ASSIST AND FWW. PATIENT ON 3L OF OXYGEN N/C WHICH IS PATIENT BASELINE. PATIENT ON HOME OXYGEN. NO ACUTE CHANGES THIS SHIFT. PATIENT HAS CALL LIGHT BY SIDE AND IS ABLE TO CALL FOR ASSISTANCE. 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 PATIENT ON DROPLET PRECAUTIONS.
[2024-05-21] MEDS ORDERED: ARIPiprazole 5 MG Tab PO SCH (21:00)
[2024-05-21] MEDS ORDERED: TraZODone HCl 100 MG Tab PO SCH ×2 (21:00→22:37)
[2024-05-21] MEDS ORDERED: LamoTRIgine 100 MG Tab PO SCH (21:00)
[2024-05-21 21:04] VITALS: BP 172/92
[2024-05-22 03:54] VITALS: BP 153/79
--- NOTE | 2024-05-22 05:06 | NUR ---
AAOX4, USES CALL LIGHT FOR NEEDS. DROPLET PRECAUTIONS FOR MRSA IN SPUTUM. 3L O2 VIA NC WHICH IS PT'S BASELINE. ACHS BG CHECKS. AWAKE OF AND ON THROUGHOUT NIGHT COUGHING. RESTARTED HOME DOSE OF TRAZADONE, 300MG @ BEDTIME.
[2024-05-22 07:28] VITALS: BP 156/73
[2024-05-22 07:28] LABS: BASOPHILS ABSOLUTE AUTO 0.01 K/mm3 (0.00-0.23); BASOPHILS PERCENT AUTO 0 % (0-2); EOSINOPHILS PERCENT AUTO 0 % (0-6); Hematocrit 35.4 % (33.0-51.0); Hemoglobin 11.4 g/dL (11.5-16.0); IMMATURE GRAN ABSOLUTE AUTO 0.11 K/mm3 (0.00-0.10); IMMATURE GRAN PERCENT AUTO 1 % (0-1); LYMPHOCYTES ABSOLUTE AUTO 0.59 K/mm3 (0.84-5.20); LYMPHOCYTES PERCENT AUTO 5 % (21-46); MONOCYTES ABSOLUTE AUTO 0.23 K/mm3 (0.16-1.47); MONOCYTES PERCENT AUTO 2 % (4-13); Mean Corpuscular HGB 30.5 pg (26.0-34.0); Mean Corpuscular HGB Conc 32.2 g/dL (31.5-36.5); Mean Corpuscular Volume 95 fL (80-100); Mean Platelet Volume 10.9 fL (9.1-12.4); NEUTROPHILS ABSOLUTE AUTO 11.06 K/mm3 (1.96-9.15); NEUTROPHILS PERCENT AUTO 92 % (41-73); Platelet Count 190 K/mm3 (150-400); RDW Coefficient Variation 12.8 % (11.7-14.2); RDW Standard Deviation 44.1 fL (35.1-46.3); Red Blood Cell Count 3.74 M/mm3 (3.80-5.20)
[2024-05-22 07:45] LABS: Alanine Aminotransfer (ALT/SGP 62 U/L (12-78); Albumin, Blood 2.9 g/dL (3.4-5.0); Albumin/Globulin Ratio 0.8 (0.8-1.8); Alk Phos 87 U/L (50-136); Anion Gap 6 mmol/L (3-11); Aspartate Aminotrans (AST/SGOT 28 U/L (12-37); Bilirubin, Total 0.2 mg/dL (0.1-1.0); Blood Urea Nitrogen 17 mg/dL (8-24); Bun/Creatinine Ratio 28.1 (12.0-20.0); CO2, Blood 34 mmol/L (21-32); Calcium, Blood 9.1 mg/dL (8.5-10.1); Chloride, Blood 107 mmol/L (98-108); Creatinine, Blood 0.61 mg/dL (0.40-1.00); Globulin, Blood 3.5 g/dL (2.2-4.0); Glomerular Filtration Rate 96 (60-); Glucose, Blood 234 mg/dL (70-99); Magnesium, Blood 2.2 mg/dL (1.6-2.4); Phosphorus, Blood 2.8 mg/dL (2.5-4.9); Potassium, Blood 3.7 mmol/L (3.5-5.5); Sodium, Blood 143 mmol/L (136-145); Total Protein, Blood 6.4 g/dL (6.4-8.2); Vancomycin, Trough 11.9 ug/mL (5.0-10.0)
[2024-05-22] MEDS ORDERED: Vancomycin HCL 1,250 MG in NS 250 ML IV SCH (09:00)
[2024-05-22] MEDS ORDERED: NS 250 ML IV PRN (13:00)
[2024-05-22 16:18] VITALS: BP 145/80
--- NOTE | 2024-05-22 17:00 | NUR ---
SHIFT SUMMARY PT AOX4, COOPERATIVE, ABLE TO MAKE NEEDS KNOWN. HAS BEEN PLEASANT FOR ENITRE SHIFT, TOLERATING PO AND IV MEDICATION. ON 3 LO2 CONTINUOUS, DESATS DURING MOVEMENT, IS WELL INFORMED ABOUT BREATHING TECHNIQUES. USES COMMODE FOR CONTINENCE. BED IN LOWEST POSITION, CALL LIGHT WITHIN REACH.
[2024-05-22 20:10] VITALS: BP 183/86
[2024-05-23 01:57] VITALS: BP 138/77
--- NOTE | 2024-05-23 03:58 | NUR ---
AAOX4, INDEPENDENT TO BSC WITH WALKER. DYSPNEA WITH EXCERTION. UNPRODUCTIVE COUGH, 3L O2 VIA NC WHICH IS BASELINE. ACHS BB CHECKS. VANCO AND CEEPIME INFUSED WITHOUT DIFFICULTY. NO ACUTE NEEDS OVERNIGHT.
[2024-05-23 05:26] LABS: BASOPHILS ABSOLUTE AUTO 0.03 K/mm3 (0.00-0.23); BASOPHILS PERCENT AUTO 0 % (0-2); EOSINOPHILS PERCENT AUTO 0 % (0-6); Hematocrit 35.6 % (33.0-51.0); Hemoglobin 11.2 g/dL (11.5-16.0); IMMATURE GRAN ABSOLUTE AUTO 0.19 K/mm3 (0.00-0.10); IMMATURE GRAN PERCENT AUTO 2 % (0-1); LYMPHOCYTES ABSOLUTE AUTO 0.47 K/mm3 (0.84-5.20); LYMPHOCYTES PERCENT AUTO 6 % (21-46); MONOCYTES ABSOLUTE AUTO 0.28 K/mm3 (0.16-1.47); MONOCYTES PERCENT AUTO 3 % (4-13); Mean Corpuscular HGB 30.1 pg (26.0-34.0); Mean Corpuscular HGB Conc 31.5 g/dL (31.5-36.5); Mean Corpuscular Volume 96 fL (80-100); Mean Platelet Volume 10.6 fL (9.1-12.4); NEUTROPHILS ABSOLUTE AUTO 7.47 K/mm3 (1.96-9.15); NEUTROPHILS PERCENT AUTO 88 % (41-73); Platelet Count 167 K/mm3 (150-400); RDW Coefficient Variation 12.7 % (11.7-14.2); RDW Standard Deviation 44.3 fL (35.1-46.3); Red Blood Cell Count 3.72 M/mm3 (3.80-5.20); White Blood Cell Count 8.44 K/mm3 (4.00-11.30)
[2024-05-23 05:50] LABS: Bun/Creatinine Ratio 32.5 (12.0-20.0); Calcium, Blood 9.1 mg/dL (8.5-10.1); Creatinine, Blood 0.62 mg/dL (0.40-1.00)
[2024-05-23 07:53] VITALS: BP 167/92
[2024-05-23] MEDS ORDERED: Losartan Potassium 25 MG Tab PO SCH (09:00)
[2024-05-23] MEDS ORDERED: MethylPREDNISolone Sod Succ 125 MG Vial IV SCH ×2 (09:00→18:00)
[2024-05-23 14:55] VITALS: BP 147/93
--- NOTE | 2024-05-23 16:12 | NUR ---
SHIFT SUMMARY MS BLANDON GETS SOB ON MINIMAL ACTIVITY. SHE IS ON 3L O2 NC, ON CONTINUOUS PULSE OX. MOSTLY IN THE 90S, DID DECREASED TO MID 80S AFTER THE FIRST TIME SHE USED THE BEDSIDE COMMODE THIS MORNING, BUT OTHER TIMES SHE HAS REMAINED IN THE 90S AFTER USING BSC. SHE IS ORIENTATED X4, APPROPRIATE CONVERSATION. UP INDEPENDENTLY TO BSC, SITTING UP ON THE EDGE OF THE BED BUT FEELING TOO SOB TO WALK AROUND THE ROOM. GOOD APPETITE, GOOD UOP. BED LOW, CALL LIGHT IN REACH, SIDE RAILS UP X2.
[2024-05-23 20:16] LABS: Vancomycin, Trough 17.7 ug/mL (5.0-10.0)
[2024-05-23 20:55] VITALS: BP 170/91
[2024-05-24 04:25] VITALS: BP 148/89
[2024-05-24 05:13] LABS: Hematocrit 39.4 % (33.0-51.0); Hemoglobin 12.5 g/dL (11.5-16.0); Mean Corpuscular HGB 29.8 pg (26.0-34.0); Mean Corpuscular HGB Conc 31.7 g/dL (31.5-36.5); Mean Corpuscular Volume 94 fL (80-100); Mean Platelet Volume 10.4 fL (9.1-12.4); Platelet Count 235 K/mm3 (150-400); RDW Coefficient Variation 12.6 % (11.7-14.2); RDW Standard Deviation 43.8 fL (35.1-46.3); Red Blood Cell Count 4.19 M/mm3 (3.80-5.20); White Blood Cell Count 9.82 K/mm3 (4.00-11.30)
[2024-05-24 05:55] LABS: Bun/Creatinine Ratio 31.3 (12.0-20.0); Calcium, Blood 9.2 mg/dL (8.5-10.1); Creatinine, Blood 0.64 mg/dL (0.40-1.00); Magnesium, Blood 2.2 mg/dL (1.6-2.4); Potassium, Blood 3.6 mmol/L (3.5-5.5)
--- NOTE | 2024-05-24 06:13 | NUR ---
SHIFT SUMMARY AT START OF SHIFT, PT RECEIVING BREATHING TREATMENT. PT SITTING UP IN BED WATCHING TV. PT STATES SHE HAS BEEN VERY SATISFIED WITH CARE PROVIDED TO HER THUS FAR. PT STATED SHE HAS FELT MOVEMENT IN HER CHEST AND SHE HAS BEGUN TO BE ABLE TO COUGH UP SOME OF THE FLUID IN HER LUNGS. PT SKAKY AFTER NEBULIZER TX. WILL CONTINUE TO MONITOR. PT SLEPT SOUNDLY THROUGH REMAINDER OF SHIFT, WAKING FOR MEDICATION ADMINISTRATION.
[2024-05-24 07:41] VITALS: BP 159/81
[2024-05-24 15:19] VITALS: BP 152/92
--- NOTE | 2024-05-24 15:58 | NUR ---
Shift Summary Ms Anglin said that she's feeling a little better today. She still gets SOB with little activity, but felt well enough to take a shower today and tolerated walking to the shower. She showered with the oxygen on. Sats on continuous pulse ox mid 90s currently, low 90s this morning. No c/o pain. Occcasional bouts of coughing, given tesslon pearls. Sitting upright, repositioning frequently independently, call light in reach.
[2024-05-24 19:55] VITALS: BP 153/83
[2024-05-25 03:09] VITALS: BP 130/66
--- NOTE | 2024-05-25 04:23 | NUR ---
SHIFT SUMMARY PATIENT IS ALERT AND ORIENTED. PATIENT HAS HAD NO ACUTE EVENTS THIS SHIFT. VITAL SIGNS REVIEWED. PATIENT HAS NO COMPLAINTS OF PAIN, NAUSEA OR VOMMITING. PATIENT REPORTED BEING SOB WHILE COUGHING. PRN COUGH MEDICATED PER EMAR. PATIENT IS ON 3L NC WHICH IS PATIENTS BASELINE. IV ABX INFUSED ORDERED. PATIENT HAS BEEN REPOSITIONED NEEDED. BED IN LOCKED AND LOWEST POSITION. CALL LIGHT IN PLACE.
[2024-05-25] MEDS ORDERED: MethylPREDNISolone Sod Succ 125 MG Vial IV SCH (06:00)
[2024-05-25 07:26] VITALS: BP 133/79
[2024-05-25 08:00] LABS: BASOPHILS ABSOLUTE AUTO 0.07 K/mm3 (0.00-0.23); BASOPHILS PERCENT AUTO 1 % (0-2); EOSINOPHILS ABSOLUTE AUTO 0.17 K/mm3 (0.00-0.68); EOSINOPHILS PERCENT AUTO 1 % (0-6); Hematocrit 43.8 % (33.0-51.0); IMMATURE GRAN ABSOLUTE AUTO 0.48 K/mm3 (0.00-0.10); IMMATURE GRAN PERCENT AUTO 4 % (0-1); LYMPHOCYTES ABSOLUTE AUTO 1.19 K/mm3 (0.84-5.20); LYMPHOCYTES PERCENT AUTO 10 % (21-46); MONOCYTES ABSOLUTE AUTO 0.86 K/mm3 (0.16-1.47); MONOCYTES PERCENT AUTO 7 % (4-13); Mean Corpuscular HGB 30.1 pg (26.0-34.0); Mean Corpuscular Volume 94 fL (80-100); Mean Platelet Volume 9.9 fL (9.1-12.4); NEUTROPHILS ABSOLUTE AUTO 9.24 K/mm3 (1.96-9.15); NEUTROPHILS PERCENT AUTO 77 % (41-73); Platelet Count 255 K/mm3 (150-400); RDW Coefficient Variation 12.8 % (11.7-14.2); RDW Standard Deviation 44.3 fL (35.1-46.3); Red Blood Cell Count 4.65 M/mm3 (3.80-5.20); White Blood Cell Count 12.01 K/mm3 (4.00-11.30)
[2024-05-25 08:30] LABS: Bun/Creatinine Ratio 23.5 (12.0-20.0); Calcium, Blood 9.4 mg/dL (8.5-10.1); Creatinine, Blood 0.77 mg/dL (0.40-1.00); Magnesium, Blood 2.1 mg/dL (1.6-2.4); Potassium, Blood 3.1 mmol/L (3.5-5.5); Vancomycin, Trough 21.2 ug/mL (5.0-10.0)
[2024-05-25] MEDS ORDERED: Vancomycin HCL 1,000 MG in NS 250 ML IV SCH (12:00)
--- NOTE | 2024-05-25 13:01 | NUR ---
CALLED DR FERREIRA TO NOTIFY HER THAT IV INFILTRATED AND UNABLE TO GIVE 1200 DOSE OF VANCO. OK'D NOT RESTARTING IV AND OK TO NOT GET THIS DOSE BEFORE DC HOME TODAY
[2024-05-25] MEDS ORDERED: PRED20 PO (15:42)
[2024-05-25] MEDS ORDERED: LINE600 PO (15:43)
--- NOTE | 2024-05-25 16:30 | NUR ---
PT DISCHARGED WITH DC INSTRUCTIONS- SENT HOME WITH BELONGINGS. PT HAS HER OWN PORTABLE OXYGEN TANK FOR THE WAY HOME. WHEELCHAIR OUT TO PRIVATE CAR TO HOME
== END 2024-05-25 16:30 | disposition home or self-care (01) | DRG 871 ==
LOC: ER 12:14 → MEDS 17:10 → PCU 17:10 → MEDS 05-21 12:44
PROVIDERS: Emergency Medicine; Hospitalist; Nurse Practitioner Acute Care; Student in an Organized Health Care Education/Training Program; ADMIT Internal Medicine
DX: A41.02 Sepsis due to Methicillin resistant Staphylococcus aureus (principal); J15.212 Pneumonia due to Methicillin resistant Staphylococcus aureus; J96.21 Acute and chronic respiratory failure with hypoxia; J96.22 Acute and chronic respiratory failure with hypercapnia; J44.1 Chronic obstructive pulmonary disease with (acute) exacerbation; J44.0 Chronic obstructive pulmonary disease with (acute) lower respiratory infection; K21.9 Gastro-esophageal reflux disease without esophagitis; F31.9 Bipolar disorder, unspecified; Y95 Nosocomial condition; F43.10 Post-traumatic stress disorder, unspecified; G43.909 Migraine, unspecified, not intractable, without status migrainosus; E78.5 Hyperlipidemia, unspecified; I48.91 Unspecified atrial fibrillation; Z79.899 Other long term (current) drug therapy; Z79.2 Long term (current) use of antibiotics; Z79.52 Long term (current) use of systemic steroids; Z79.51 Long term (current) use of inhaled steroids; Z79.01 Long term (current) use of anticoagulants; Z99.81 Dependence on supplemental oxygen; Z87.891 Personal history of nicotine dependence; Z88.5 Allergy status to narcotic agent; Z88.8 Allergy status to other drugs, medicaments and biological substances; Z79.85 Long-term (current) use of injectable non-insulin antidiabetic drugs; Z85.72 Personal history of non-Hodgkin lymphomas
CPT/HCPCS: 36415; 71046; 80048; 80053; 80202; 82803; 82947; 83605; 83735; 84100; 84484; 85025; 85027; 87040; 87428-QW; 93005; 93010; 94640; 94644; 94664; 94760; 94762; 96365; 96375; 97110; 97162; 97530; 99285-25; A9270; J0456; J0692; J0696; J2919; J3370; J7050; J7120

== ENCOUNTER 2024-06-09 17:51 | Emergency (ER) | payer OTHER ==
[~2024-06-09] VITALS: Ht 157.5 cm; Wt 78.0 kg
[~2024-06-09 17:51] MED LIST changes: +LINE600 PO
[2024-06-09 18:28] LABS: Hematocrit 38.3 % (33.0-51.0); Hemoglobin 12.2 g/dL (11.5-16.0); Mean Corpuscular HGB 29.6 pg (26.0-34.0); Mean Corpuscular HGB Conc 31.9 g/dL (31.5-36.5); Mean Corpuscular Volume 93 fL (80-100); Mean Platelet Volume 9.8 fL (9.1-12.4); Platelet Count 110 K/mm3 (150-400); RDW Coefficient Variation 13.6 % (11.7-14.2); RDW Standard Deviation 46.3 fL (35.1-46.3); Red Blood Cell Count 4.12 M/mm3 (3.80-5.20); White Blood Cell Count 1.88 K/mm3 (4.00-11.30)
[2024-06-09 18:52] LABS: BAND PERCENT MAN 4 % (0-8); BASOPHILS ABSOLUTE MAN 0.01 K/mm3 (0.00-0.23); BASOPHILS PERCENT MAN 1 % (0-2); EOSINOPHILS ABSOLUTE MAN 0.15 K/mm3 (0.00-0.68); EOSINOPHILS PERCENT MAN 8 % (0-6); LYMPHOCYTES ABSOLUTE MAN 0.82 K/mm3 (0.84-5.20); LYMPHOCYTES PERCENT MAN 44 % (21-46); MONOCYTES ABSOLUTE MAN 0.05 K/mm3 (0.16-1.47); MONOCYTES PERCENT MAN 3 % (4-13); NEUTROPHILS ABSOLUTE MAN 0.82 K/mm3 (1.96-9.15); SEG NEUTROPHILS PERCENT MAN 40 % (41-73); TOTAL CELLS COUNTED 100
[2024-06-09] MEDS ORDERED: ALLEGRA ALLERG180 MG PO (18:52)
[2024-06-09 18:55] LABS: Albumin, Blood 3.4 g/dL (3.4-5.0); Albumin/Globulin Ratio 1.1 (0.8-1.8); Bilirubin, Total 0.5 mg/dL (0.1-1.0); Bun/Creatinine Ratio 19.1 (12.0-20.0); Calcium, Blood 9.1 mg/dL (8.5-10.1); Creatinine, Blood 0.68 mg/dL (0.40-1.00); Potassium, Blood 3.6 mmol/L (3.5-5.5); Total Protein, Blood 6.4 g/dL (6.4-8.2)
[2024-06-09] MEDS ORDERED: IPRAT-ALBUT 0.5-3 ML (18:56)
[2024-06-09] MEDS ORDERED: BUDESONIDE-FO10.2 G2 (18:56)
[2024-06-09 19:34] LABS: Influenza A, PCR NEGATIVE (NEGATIVE); Influenza B, PCR NEGATIVE (NEGATIVE); Resp Syncytial Virus, PCR NEGATIVE (NEGATIVE); SARS-Cov-2 (COVID-19) PCR, MMC NEGATIVE (NEGATIVE)
[2024-06-09] MEDS ORDERED: Albuterol 2.5 MG/3 ML VIAL INH SCH (19:55)
[2024-06-09 21:15] VITALS: BP 156/82
== END 2024-06-09 21:28 | disposition home or self-care (01) ==
LOC: ER 17:51
PROVIDERS: Emergency Medicine
DX: J44.1 Chronic obstructive pulmonary disease with (acute) exacerbation (principal); J44.0 Chronic obstructive pulmonary disease with (acute) lower respiratory infection; J15.212 Pneumonia due to Methicillin resistant Staphylococcus aureus; K21.9 Gastro-esophageal reflux disease without esophagitis; F17.210 Nicotine dependence, cigarettes, uncomplicated; Z88.5 Allergy status to narcotic agent; Z88.8 Allergy status to other drugs, medicaments and biological substances; Z79.899 Other long term (current) drug therapy; Z79.01 Long term (current) use of anticoagulants; Z99.81 Dependence on supplemental oxygen
CPT/HCPCS: 0241U; 71045; 80053; 85025; 93005; 93010; 94644; 94664; 99285-25

== ENCOUNTER 2024-06-13 16:27 | Emergency (ER) | payer OTHER ==
[~2024-06-13] VITALS: Ht 160 cm; Wt 81.7 kg
[~2024-06-13 16:27] MED LIST changes: +ALLEGRA ALLERG180 MG PO; +BUDESONIDE-FO10.2 G2; +IPRAT-ALBUT 0.5-3 ML
[2024-06-13 16:40] VITALS: BP 129/79
[2024-06-13] MEDS ORDERED: CEPH500 PO (18:37)
[2024-06-15] MEDS ORDERED: LORAZEPAM0.5 MG PO (22:48)
== END 2024-06-13 19:05 | disposition home or self-care (01) ==
LOC: ER 16:27
DX: L03.012 Cellulitis of left finger (principal); F43.10 Post-traumatic stress disorder, unspecified; G43.909 Migraine, unspecified, not intractable, without status migrainosus; K21.9 Gastro-esophageal reflux disease without esophagitis; J44.9 Chronic obstructive pulmonary disease, unspecified; F17.210 Nicotine dependence, cigarettes, uncomplicated; Z79.899 Other long term (current) drug therapy; Z79.51 Long term (current) use of inhaled steroids; Z88.5 Allergy status to narcotic agent; Z88.1 Allergy status to other antibiotic agents; Z88.8 Allergy status to other drugs, medicaments and biological substances
CPT/HCPCS: 10060; 99283-25

== ENCOUNTER 2024-08-24 14:18 | Emergency (ER) | payer OTHER ==
[~2024-08-24] VITALS: Ht 157.5 cm; Wt 74.8 kg
[~2024-08-24 14:18] MED LIST changes: +CEPH500 PO; +JARDIANCE10 MG PO; +LORAZEPAM0.5 MG PO
[2024-08-24 15:04] LABS: BASOPHILS ABSOLUTE AUTO 0.02 K/mm3 (0.00-0.23); BASOPHILS PERCENT AUTO 0 % (0-2); EOSINOPHILS ABSOLUTE AUTO 0.15 K/mm3 (0.00-0.68); EOSINOPHILS PERCENT AUTO 3 % (0-6); Hematocrit 35.3 % (33.0-51.0); Hemoglobin 11.6 g/dL (11.5-16.0); IMMATURE GRAN ABSOLUTE AUTO 0.02 K/mm3 (0.00-0.10); IMMATURE GRAN PERCENT AUTO 0 % (0-1); LYMPHOCYTES PERCENT AUTO 24 % (21-46); MONOCYTES ABSOLUTE AUTO 0.23 K/mm3 (0.16-1.47); MONOCYTES PERCENT AUTO 4 % (4-13); Mean Corpuscular HGB 30.1 pg (26.0-34.0); Mean Corpuscular HGB Conc 32.9 g/dL (31.5-36.5); Mean Corpuscular Volume 92 fL (80-100); Mean Platelet Volume 10.6 fL (9.1-12.4); NEUTROPHILS ABSOLUTE AUTO 3.61 K/mm3 (1.96-9.15); NEUTROPHILS PERCENT AUTO 68 % (41-73); Platelet Count 157 K/mm3 (150-400); RDW Coefficient Variation 13.8 % (11.7-14.2); RDW Standard Deviation 46.3 fL (35.1-46.3); Red Blood Cell Count 3.86 M/mm3 (3.80-5.20); White Blood Cell Count 5.33 K/mm3 (4.00-11.30)
[2024-08-24 15:33] LABS: Albumin, Blood 3.7 g/dL (3.4-5.0); Albumin/Globulin Ratio 1.4 (0.8-1.8); Bilirubin, Total 0.4 mg/dL (0.1-1.0); Bun/Creatinine Ratio 22.1 (12.0-20.0); Calcium, Blood 8.7 mg/dL (8.5-10.1); Creatinine, Blood 0.59 mg/dL (0.40-1.00); Globulin, Blood 2.6 g/dL (2.2-4.0); Potassium, Blood 3.3 mmol/L (3.5-5.5); Total Protein, Blood 6.3 g/dL (6.4-8.2)
[2024-08-24 15:46] LABS: Influenza A, PCR NEGATIVE (NEGATIVE); Influenza B, PCR NEGATIVE (NEGATIVE); Resp Syncytial Virus, PCR NEGATIVE (NEGATIVE); SARS-Cov-2 (COVID-19) PCR, MMC NEGATIVE (NEGATIVE)
[2024-08-24] MEDS ORDERED: Amoxicillin/Clavulanate K 875 MG Tab PO ONE (16:25)
[2024-08-24] MEDS ORDERED: Prednisone20 MG PO (16:43)
[2024-08-24] MEDS ORDERED: Diflucan150 MG PO (16:43)
[2024-08-24] MEDS ORDERED: AMOCLA875 PO (16:43)
[2024-08-24 18:38] VITALS: BP 136/84
== END 2024-08-24 18:39 | disposition home or self-care (01) ==
LOC: ER 14:18
PROVIDERS: Emergency Medicine
DX: J44.1 Chronic obstructive pulmonary disease with (acute) exacerbation (principal); K21.9 Gastro-esophageal reflux disease without esophagitis; Z88.5 Allergy status to narcotic agent; Z88.8 Allergy status to other drugs, medicaments and biological substances; Z79.899 Other long term (current) drug therapy; Z79.52 Long term (current) use of systemic steroids; Z11.52 Encounter for screening for COVID-19
CPT/HCPCS: 0241U; 36415; 71045; 80053; 83880; 84484; 85025; 93005; 93010; 99285-25; A9270

== ENCOUNTER 2024-09-22 09:54 | Inpatient (IN) | payer OTHER ==
[~2024-09-22] VITALS: Ht 157.5 cm; Wt 75.6 kg
[~2024-09-22 09:54] MED LIST changes: -ALBU90OI INH; +AMOCLA875 PO; +Diflucan150 MG PO; -IPRAT-ALBUT 0.5-3 ML; +Prednisone20 MG PO
[2024-09-22] MEDS ORDERED: Albuterol 2.5 MG/3 ML VIAL INH SCH (10:05)
[2024-09-22 10:56] LABS: BASOPHILS ABSOLUTE AUTO 0.06 K/mm3 (0.00-0.23); BASOPHILS PERCENT AUTO 0 % (0-2); EOSINOPHILS ABSOLUTE AUTO 0.06 K/mm3 (0.00-0.68); EOSINOPHILS PERCENT AUTO 0 % (0-6); Hematocrit 39.1 % (33.0-51.0); Hemoglobin 12.5 g/dL (11.5-16.0); IMMATURE GRAN ABSOLUTE AUTO 0.13 K/mm3 (0.00-0.10); IMMATURE GRAN PERCENT AUTO 1 % (0-1); LYMPHOCYTES ABSOLUTE AUTO 1.22 K/mm3 (0.84-5.20); LYMPHOCYTES PERCENT AUTO 6 % (21-46); MONOCYTES ABSOLUTE AUTO 1.32 K/mm3 (0.16-1.47); MONOCYTES PERCENT AUTO 7 % (4-13); Mean Corpuscular Volume 91 fL (80-100); NEUTROPHILS ABSOLUTE AUTO 16.37 K/mm3 (1.96-9.15); NEUTROPHILS PERCENT AUTO 85 % (41-73); Platelet Count 178 K/mm3 (150-400); RDW Coefficient Variation 13.3 % (11.7-14.2); RDW Standard Deviation 44.3 fL (35.1-46.3); Red Blood Cell Count 4.31 M/mm3 (3.80-5.20); White Blood Cell Count 19.16 K/mm3 (4.00-11.30)
[2024-09-22 11:07] LABS: Albumin, Blood 3.3 g/dL (3.4-5.0); Albumin/Globulin Ratio 1.1 (0.8-1.8); Bilirubin, Total 0.6 mg/dL (0.1-1.0); Bun/Creatinine Ratio 23.6 (12.0-20.0); Creatinine, Blood 0.51 mg/dL (0.40-1.00); Total Protein, Blood 6.3 g/dL (6.4-8.2)
[2024-09-22 11:12] LABS: Source, Urine Clean Catch
[2024-09-22 11:51] LABS: Bilirubin, Urine Neg (Neg); Blood, Urine 3+ (Neg); Color, Urine Yellow (P-Yellow); Glucose Qualitative, Urine 1+ (Neg); Ketones, Urine 3+ (Neg); Leukocyte Esterase, Urine Neg (Neg); Nitrite, Urine Neg (Neg); Protein, Urine 3+ (Neg); Specific Gravity, Urine 1.015 (1.003-1.022); Urobilinogen, Urine NORM (Normal)
[2024-09-22] MEDS ORDERED: Azithromycin 500 MG in NS 250 ML IV ONE (12:00)
[2024-09-22] MEDS ORDERED: CefTRIAXone Sodium 1,000 MG in NS 100 ML IV ONE (12:00)
[2024-09-22 12:01] LABS: Base Excess Venous 6.7 mmol/L; PCO2 Venous 40.6 mmHg (38-42); pH Blood Venous 7.48 (7.34-7.37)
[2024-09-22] MEDS ORDERED: Potassium Chloride 20 MEQ TabCR PO ONE (12:15)
[2024-09-22 12:40] LABS: Amorphous Light (0-Heavy); Appearance, Urine Hazy (Clear); Bacteria Many /hpf; Red Blood Cells, Urine 0-2 /hpf (0-2); Squamous Epithelial Cells Rare /hpf (Few); Transitional Epithelial Cells Rare /hpf (0-Rare); White Blood Cells, Urine 0-2 /hpf (0-5)
[2024-09-22 12:41] LABS: Mucus Light (0-Heavy)
[2024-09-22] MEDS ORDERED: Polyethylene Glycol 3350 17 gm PO PRN (12:55)
[2024-09-22] MEDS ORDERED: Acetaminophen 500 MG Tab PO PRN (13:00)
[2024-09-22] MEDS ORDERED: Ipratropium/Albuterol SulF 2.5-0.5MG/3 ML Amp INH SCH (14:35)
[2024-09-22] MEDS ORDERED: Albuterol 2.5 MG/3 ML VIAL INH PRN (14:35)
[2024-09-22] MEDS ORDERED: Mometasone/Formoterol MDI 200/5 mcg 13 GM INH SCH (14:40)
[2024-09-22 14:42] VITALS: BP 130/74
[2024-09-22] MEDS ORDERED: ABILIFY MYCITE10 M2 PO (15:25)
--- NOTE | 2024-09-22 15:28 | NUR ---
Dr. Lynn notified of pt's arrival to PCU 14; wounds on labia, and pt's denial of Eliquis as her front desk lead had dc'd it. Pt is in sinus tachycardia 112 bpm at this time. Pleasantly conversant, mild dyspnea at rest, on 3 l/min of 02. LUng sound coarse and wheezy. Occasional hacking nonproductive but moist sounding cough. RR 20-22/min at rest. New orders received for wound treatment. PT home medication list completed.
[2024-09-22] MEDS ORDERED: MethylPREDNISolone Sod Succ 125 MG Vial IV SCH (16:00)
[2024-09-22] MEDS ORDERED: LORazepam 0.5 MG Tab PO PRN (16:45)
--- NOTE | 2024-09-22 18:31 | NUR ---
Shift summary: Upon admission, pt was diaphoretic and tachypnic. After changing her from thick pajamas into a gown and elevating the head of the bed, her skin was no longer sweaty and her RR decreased. RT was at bedside to give breathing Tx, and pt reports decreased work of breathing and feeling of her lungs being less tight at 1838. Pt is currently calling daughter.
[2024-09-22 20:00] VITALS: BP 167/84
[2024-09-22] MEDS ORDERED: TraZODone HCl 100 MG Tab PO SCH (21:00)
[2024-09-22] MEDS ORDERED: Lactobacil 2-S.Thermo-Bifido 1 1 Cap PO SCH (21:00)
[2024-09-22] MEDS ORDERED: ARIPiprazole 10 MG Tab PO SCH (21:00)
[2024-09-22] MEDS ORDERED: LamoTRIgine 100 MG Tab PO SCH (21:00)
[2024-09-22] MEDS ORDERED: Docusate Sodium/Senna 1 Tab PO SCH (21:00)
[2024-09-23] VITALS (7 sets, daily range): BP systolic 106–153; BP diastolic 61–91
[2024-09-23 04:29] LABS: Base Excess Venous 8.5 mmol/L; Bicarbonate Venous 31.6 mmol/L (24.0-30.0); PCO2 Venous 37.1 mmHg (38-42); pH Blood Venous 7.53 (7.34-7.37)
[2024-09-23 04:37] LABS: Hematocrit 36.2 % (33.0-51.0); Hemoglobin 11.8 g/dL (11.5-16.0); Mean Corpuscular HGB 29.4 pg (26.0-34.0); Mean Corpuscular HGB Conc 32.6 g/dL (31.5-36.5); Mean Corpuscular Volume 90 fL (80-100); Mean Platelet Volume 10.4 fL (9.1-12.4); Platelet Count 191 K/mm3 (150-400); RDW Coefficient Variation 13.2 % (11.7-14.2); RDW Standard Deviation 43.1 fL (35.1-46.3); Red Blood Cell Count 4.01 M/mm3 (3.80-5.20); White Blood Cell Count 21.77 K/mm3 (4.00-11.30)
[2024-09-23 05:00] LABS: Albumin, Blood 2.9 g/dL (3.4-5.0); Anion Gap 7 mmol/L (3-11); Blood Urea Nitrogen 16 mg/dL (8-24); Bun/Creatinine Ratio 24.1 (12.0-20.0); CO2, Blood 31 mmol/L (21-32); Calcium, Blood 8.8 mg/dL (8.5-10.1); Chloride, Blood 99 mmol/L (98-108); Creatinine, Blood 0.66 mg/dL (0.40-1.00); Glomerular Filtration Rate 93 (60-); Glucose, Blood 208 mg/dL (70-99); Phosphorus, Blood 1.6 mg/dL (2.5-4.9); Potassium, Blood 3.2 mmol/L (3.5-5.5); Sodium, Blood 134 mmol/L (136-145)
--- NOTE | 2024-09-23 05:38 | NUR ---
SHIFT SUMMARY PT TOLERATED SHIFT WITH NO SIGNIFICANT CHANGES TO STATUS. PT HAS BEEN ABLE TO REST COMFORTABLY IN ROOM THROUGHOUT SHIFT. PT APPEARS TO BE IN GOOD SPIRITS AT THIS TIME. PT STATES NO COMPLAINTS AT THIS TIME TO THIS NURSE. WILL CONTINUE TO MONITOR UNTIL REPORT PASSED TO DAY SHIFT TEAM.
[2024-09-23] MEDS ORDERED: Omeprazole 20 MG CapCR PO SCH (06:00)
[2024-09-23] MEDS ORDERED: Potassium Phosphate Dibasic 25 MM in Dextrose 5% 500 ML IV STA (07:42)
--- NOTE | 2024-09-23 08:08 | NUR ---
Pt is very lethargic, difficult to arouse. Tachypneic at 28 RR/min. When she manages to awaken and give answers, she says that the combination of trazadone and ativan she took last night makes her so sleepy. They were both given at 2014 last night, per eMAR.
[2024-09-23] MEDS ORDERED: Doxycycline Hyclate 100 MG TAB PO SCH (09:00)
[2024-09-23] MEDS ORDERED: Enoxaparin 40 MG/0.4 ML SYR SC SCH (09:00)
[2024-09-23] MEDS ORDERED: Venlafaxine HCl 75 MG CapCR PO SCH (09:00)
[2024-09-23] MEDS ORDERED: Furosemide 10 MG / ML 2ML Vial IV SCH (09:00)
--- NOTE | 2024-09-23 09:50 | NUR ---
The pt has been on the bipap since around 0730 this morning, and she is still very lethargic. HOlding breakfast tray as well as po meds until she is awake enough to safely take PO items.
[2024-09-23] MEDS ORDERED: CefTRIAXone Sodium 1,000 MG in NS 100 ML IV SCH (12:00)
--- NOTE | 2024-09-23 13:32 | NUR ---
Pt was using purewick overnight, but late this morning when she finally was awake, it was removed and she was assisted up to the recliner to eat a late breakfast and take p.o. meds. She has nearly continuous urinary incontinence, combined with fecal incontinence, so the purewick cannot be used. She has tolerated being up in the chair with 3 l/min O2 delivery, also using the bedside commode but most often she is needing to have her attends changed due to incontinence.
--- NOTE | 2024-09-23 14:57 | NUR ---
Pt awoke this morning with stool incontinence, which was a soft formed brown stool. She has since been having very loose unformed stools, incontinent. She says that it is probably from the antibiotics which she is receiving.
--- NOTE | 2024-09-23 15:35 | NUR ---
Spiritual care visit conducted. Alexei is sitting on a chair and alert. She tells me about her medical conditions and the fears she has about her mortality. She also shares about the many stressors i.e., financial lack and debt, family unit complications, a need for shelter care, a need for someone to help with EOL planning and spiritual distress. We explore sources of help and next steps. I provided therapeutic listening, gentle vp & general counsel and prayer. Patient responded well and showed signs of greater peace.
[2024-09-23] MEDS ORDERED: DEXTROMETHORPHAN/BENZOCAINE 1 EACH LOZENGE MT PRN (15:55)
--- NOTE | 2024-09-23 16:28 | NUR ---
C/O sore throat; lozenges ordered by Dr. Lynn.
[2024-09-23] MEDS ORDERED: MethylPREDNISolone Sod Succ 125 MG Vial IV SCH (21:00)
[2024-09-23] MEDS ORDERED: TraZODone HCl 50 MG Tab PO SCH (21:00)
[2024-09-24 03:40] VITALS: BP 130/90
[2024-09-24 04:45] LABS: Hematocrit 36.1 % (33.0-51.0); Hemoglobin 11.7 g/dL (11.5-16.0); Mean Corpuscular HGB 28.8 pg (26.0-34.0); Mean Corpuscular HGB Conc 32.4 g/dL (31.5-36.5); Mean Corpuscular Volume 89 fL (80-100); Mean Platelet Volume 10.7 fL (9.1-12.4); Platelet Count 208 K/mm3 (150-400); RDW Coefficient Variation 13.1 % (11.7-14.2); RDW Standard Deviation 42.2 fL (35.1-46.3); Red Blood Cell Count 4.06 M/mm3 (3.80-5.20); White Blood Cell Count 20.99 K/mm3 (4.00-11.30)
[2024-09-24 05:02] LABS: Albumin, Blood 2.9 g/dL (3.4-5.0); Anion Gap 10 mmol/L (3-11); Blood Urea Nitrogen 27 mg/dL (8-24); CO2, Blood 31 mmol/L (21-32); Calcium, Blood 9.2 mg/dL (8.5-10.1); Chloride, Blood 101 mmol/L (98-108); Creatinine, Blood 0.66 mg/dL (0.40-1.00); Glomerular Filtration Rate 93 (60-); Glucose, Blood 232 mg/dL (70-99); Phosphorus, Blood 2.2 mg/dL (2.5-4.9); Potassium, Blood 3.6 mmol/L (3.5-5.5); Sodium, Blood 138 mmol/L (136-145)
[2024-09-24] MEDS ORDERED: Potassium Phosphate Dibasic 30 MM in Dextrose 5% 500 ML IV ONE (06:00)
--- NOTE | 2024-09-24 06:35 | NUR ---
SHIFT SUMMARY NEURO: PT REPORTS ANXIETY TONIGHT WITH WEARING BIPAP AND ALSO WANTED TO AVOID BENZO, SO SHE SLEPT WITHOUT THE BIPAP TONIGHT. CARDIAC: TACHY IN THE 120'S. LUNGS: ON BASELINE NASAL CANNULA 3L. SOME FINE CRACKLES NOTED.
[2024-09-24 08:36] VITALS: BP 143/69
--- NOTE | 2024-09-24 11:30 | NUR ---
Spiritual care visit conducted. Patient is lying in bed and alert. She tells me about her discouragement because of additional fluid discovered in her lungs and concerns about how to manage once she leaves the hospital. She expresses wishes to go to [facility] because that is where her dtr works but also she worries about all the unpacked items and how she would work out those details. We discuss sources of peace and stress management. I provided gentle sexual assault counsellor and prayer. The patient responded well and showed signs of reduced stress.
[2024-09-24 12:17] VITALS: BP 141/87
[2024-09-24] MEDS ORDERED: Metoprolol Succinate 25 MG TABCR PO SCH (13:00)
[2024-09-24 13:24] VITALS: BP 124/72
[2024-09-24 15:32] VITALS: BP 137/69
--- NOTE | 2024-09-24 17:51 | NUR ---
PT A&Ox4 ON 3LNC WHICH IS HER BASELINE @ HOME. SHE IS SITTING UP ON THE SIDE OF THE BED EATING DINNER. SHE IS A x1 ASSIST TO THE BSC. NO NEEDS OR CONCERNS NOTED @ THIS TIME. BED IN LOW POSITION, CALL LIGHT AND PERSONAL BELONGINGS IN REACH.
[2024-09-24 19:57] VITALS: BP 143/96
[2024-09-25 00:04] VITALS: BP 128/74
[2024-09-25 04:00] LABS: Hematocrit 34.9 % (33.0-51.0); Hemoglobin 11.2 g/dL (11.5-16.0); Mean Corpuscular HGB 29.5 pg (26.0-34.0); Mean Corpuscular HGB Conc 32.1 g/dL (31.5-36.5); Mean Corpuscular Volume 92 fL (80-100); Mean Platelet Volume 10.9 fL (9.1-12.4); Platelet Count 197 K/mm3 (150-400); RDW Coefficient Variation 13.1 % (11.7-14.2); RDW Standard Deviation 43.4 fL (35.1-46.3); White Blood Cell Count 14.01 K/mm3 (4.00-11.30)
[2024-09-25 04:33] LABS: Bun/Creatinine Ratio 37.6 (12.0-20.0); Creatinine, Blood 0.64 mg/dL (0.40-1.00); Potassium, Blood 4.6 mmol/L (3.5-5.5)
[2024-09-25 04:34] VITALS: BP 119/76
--- NOTE | 2024-09-25 06:31 | NUR ---
SHIFT SUMMARY: AOX4, PT ABLE TO MAKE NEEDS KNOWN. NO ACUTE CHANGES THIS SHIFT. ON TELE ST HR 100. DENIES CP/PRESSURE. BPS STABLE. 3L NC, DID NOT UTILIZE BIPAP, PT DOES NOT TOLERATE WELL AND REFUSES. O2 SATS STAYED >98%. BREATHING IS EVEN AND UNLABORED. CALL LIGHT WITHIN REACH, BED AT LOWEST POSITION.
--- NOTE | 2024-09-25 07:24 | NUR ---
REVIEWED AND AGREE WITH ALL RAILWAY SIGNAL OPERATOR DOCUMENTATION
[2024-09-25 08:20] VITALS: BP 154/74
[2024-09-25] MEDS ORDERED: PredniSONE 20 MG Tab PO SCH (09:00)
[2024-09-25 12:13] VITALS: BP 151/81
[2024-09-25 15:21] VITALS: BP 144/99
--- NOTE | 2024-09-25 17:49 | NUR ---
PT A&Ox4 ON 3LNC. SHE IS x1 ASSIST TO BSC. ABLE TO MAKE HER NEEDS KNOWN. PT TRANSFERRED TO [facility] @[id number] BY WITH ALL OF HER PERSONAL BELONGINGS.
--- NOTE | 2024-09-25 18:20 | NUR ---
ASSUMED CARE NOTE RECEIVED REPORT FROM MEGHA HUMPHREY AND ASSUMED CARE OF PT AT 1805. PT ARRIVED VIA W/C AND AMB TO THE BED W/ ASSIST. PT A&OX4, TOLERATING PO, AND DENIED PAIN. 2 RN SKIN CHECK COMPLETE. PT ORIENTED TO ROOM AND CALL LIGHT. CALL LIGHT PLACED WITHIN REACH.
[2024-09-25 19:27] VITALS: BP 136/79
[2024-09-26 04:01] VITALS: BP 149/94
--- NOTE | 2024-09-26 04:47 | NUR ---
SHIFT SUMMARY PT IS ALERT AND ORIENTED TIMES 4 , FULL CODE. PT ADMITTED FOR ACUTE ON CHRONIC RESPIRATORY FAILURE. PT IS ABLE TO AMBULATE TO TOILET FOR BM. PT IS ON 3L O2. PT IS ABLE TO AMBULATE WITH ASSIST TO TOILET. 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 BED IS IN LOW POSITION, RAILS TIMES TWO, AND CALL LIGHT WITHIN REACH.
[2024-09-26 07:22] VITALS: BP 130/86
[2024-09-26] MEDS ORDERED: NS 250 ML IV PRN (10:55)
[2024-09-26 16:15] VITALS: BP 126/79
--- NOTE | 2024-09-26 18:06 | NUR ---
SHIFT SUMMARY PT A&OX4, VSS, AMB W/ ASSIST, ON 3L O2 NC, TOLERATING PO, VOIDING, AND DENIED PAIN. PT CONT TO BE MODERATELY SOB W/ EXERTION. CALL LIGHT WITHIN REACH AND PT ABLE TO MAKE NEEDS KNOWN.
[2024-09-26 19:16] VITALS: BP 116/76
[2024-09-27 04:10] VITALS: BP 114/64
--- NOTE | 2024-09-27 04:16 | NUR ---
PT A&O X4, VS WNL, O2 AT 3L/ NC,, BIPAP ON FOR APPROXIMATELY 3 HRS. PT UP TO BR TO VOID, TYLENOL FOR HEADACHE THIS AM. L/S CLEAR WITH EXCEPTION OF RUL HAS EXP. WHEEZING. PO INTAKE WNL, WILL CONTINUE ON ABX, AND PREDNISONE, AND NEBS. UNSURE WHAT D/C PLAN IS AT THIS TIME.
[2024-09-27 05:41] LABS: Hematocrit 38.1 % (33.0-51.0); Mean Corpuscular HGB 28.4 pg (26.0-34.0); Mean Corpuscular HGB Conc 31.5 g/dL (31.5-36.5); Mean Corpuscular Volume 90 fL (80-100); Platelet Count 246 K/mm3 (150-400); RDW Coefficient Variation 13.3 % (11.7-14.2); Red Blood Cell Count 4.23 M/mm3 (3.80-5.20); White Blood Cell Count 12.26 K/mm3 (4.00-11.30)
[2024-09-27 06:05] LABS: Calcium, Blood 9.8 mg/dL (8.5-10.1); Creatinine, Blood 0.69 mg/dL (0.40-1.00); Potassium, Blood 3.6 mmol/L (3.5-5.5)
[2024-09-27 08:10] VITALS: BP 141/78
[2024-09-27 17:18] VITALS: BP 139/78
--- NOTE | 2024-09-27 17:36 | NUR ---
SHIFT SUMMARY NO ACUTE CHANGES THIS SHIFT. CALL LIGHT WITHIN REACH AND PT ABLE TO MAKE NEEDS KNOWN.
[2024-09-27 19:33] VITALS: BP 132/75
[2024-09-27 23:37] VITALS: BP 109/57
[2024-09-28 02:49] VITALS: BP 113/64
--- NOTE | 2024-09-28 04:18 | NUR ---
PT A&O X4, VS WNL, O2 INCREASED TO 3.5L/ NC D/T LOW SATS WHEN ASLEEP, BIPAP OFF AFTER 2 HRS D/T MASK WOULD NOT SEAL PROPERLY. PT UP TO BSC INDEPENDENTLY. DENIES PAIN, AND USES CALL SYSTEM APPROPRIATELY. PLAN UNKNOWN AT THIS TIME.
[2024-09-28 06:33] LABS: Bun/Creatinine Ratio 27.4 (12.0-20.0); Calcium, Blood 9.5 mg/dL (8.5-10.1); Creatinine, Blood 0.66 mg/dL (0.40-1.00); Potassium, Blood 3.8 mmol/L (3.5-5.5)
[2024-09-28 08:06] VITALS: BP 130/76
[2024-09-28] MEDS ORDERED: Furosemide 10 MG / ML 2ML Vial IV SCH (11:00)
--- NOTE | 2024-09-28 11:59 | NUR ---
1146- TELEPHONE VERBAL ORDER FROM VISH FOR 25MCG FENTANYL IV Q 4 HRS PRN PAIN.
[2024-09-28] MEDS ORDERED: FentaNYL Citrate 50 MCG/ML 2 ML Injection IV PRN (12:10)
[2024-09-28 16:25] VITALS: BP 124/79
--- NOTE | 2024-09-28 18:15 | NUR ---
SHIFT SUMMARY: AOX4, PLEASANT AND COOPERATIVE TODAY. WEAK GAIT, WALKS TO THE BATHROOM WITH 1 PERSON ASSIST. TRANSFERS TO BEDSIDE COMMODE INDEPENDENTLY AND DOES NOT CALL FOR ASSISTANCE WITH THIS, BUT OTHERWISE USES THE CALL LIGHT APPROPRIATELY AND CLEARLY COMMUNICATES NEEDS. SHE COMPLAINED OF NEW ONSET UPPER ABDOMINAL PAIN THIS MORNING, MEDICATED PER THE MAR, PAIN CONTROLLED. PAIN POSSIBLY GALLBLADDER RELATED. PATIENT IS CURRENTLY SITTING UP IN BED WITH FEET ON THE FLOOR EATING DINNER WITH CALL LIGHT WITHIN REACH.
[2024-09-28 20:05] VITALS: BP 121/76
[2024-09-28 23:27] VITALS: BP 109/83
[2024-09-29 04:14] VITALS: BP 117/66
[2024-09-29 06:59] LABS: Bun/Creatinine Ratio 30.4 (12.0-20.0); Calcium, Blood 9.5 mg/dL (8.5-10.1); Creatinine, Blood 0.62 mg/dL (0.40-1.00); Potassium, Blood 3.6 mmol/L (3.5-5.5)
[2024-09-29 08:35] VITALS: BP 127/62
[2024-09-29] MEDS ORDERED: Furosemide 20 MG Tab PO SCH (09:00)
[2024-09-29] MEDS ORDERED: AcetaZOLAMIDE 250 MG Tab PO SCH (09:00)
--- NOTE | 2024-09-29 16:09 | NUR ---
Patient is lying in bed and resting, but easily awakens to the sound of her name. She welcomes me. She shares about her battles with cancer, her ability to find ben and hope in challenging circumstances and her deep reliance on God. We also discuss her family, her desires not to be a burden to her family and the gratitude she has for each day. She also mentions the kindness of the clinical staff and the ben she feels when they stop and notice her. I provided therapeutic listening, and prayer. The patient responded well and showed signs of an elevated mood.
--- NOTE | 2024-09-29 18:37 | NUR ---
PT IS A/Ox4 AND ABLE TO USE CALL LIGHT APPROPRIATELY. PT IS CURRENTLY ON 3L OF O2 NC WHICH IS HER BASELINE. ECHO CONFIRMED RIGHT SIDED CARDIAC ENLARGEMENT AND A 55-60% EF. PT IS INDEPENDENT TO THE BEDSIDE COMMODE AND A SBA TO THE TOILET D/T WEAKNESS/SOB ON EXERTION. PT IS CURRENTLY SITTING UP IN BED EATING DINNER, BED IS IN LOWEST POSITION AND CALL LIGHT IS IN REACH. NO ACUTE NEEDS AT THIS TIME.
--- NOTE | 2024-09-29 18:44 | NUR ---
PLEASE REFER TO STUDENT NOTE FOR SHIFT SUMMARY THIS PROPULSION GENERATOR REPAIRER HAS REVIEWED AND AGREES.
[2024-09-29 19:37] VITALS: BP 101/59
[2024-09-30 02:20] VITALS: BP 110/53
--- NOTE | 2024-09-30 06:00 | NUR ---
SHIFT SUMMARY NOC PT A/O X 4. PLEASANT AND COOPERATIVE WITH CARE. VSS. PT REMAINS ON 3L/NC WHICH IS BASELINE WITH SPO2 >95%, ON PULSE OXIMETRY. PT WORE BIPAP FOR 5 HOURS. PT ON DROPLET ISOLATION FOR MRSA IN SPUTUM. PT CONTINUES DIURESIS. GIVEN TYLENOL FOR PARDO. PT IS INDEPENDENT TO BSC AND SBA TO BATHROOM DUE TO SOB AND GEN WEAKNESS. PT CURRENTLY RESTING WITH BED IN LOWEST POSITION, AND CALL LIGHT WITHIN REACH.
[2024-09-30 07:03] LABS: Bun/Creatinine Ratio 27.8 (12.0-20.0); Calcium, Blood 9.5 mg/dL (8.5-10.1); Creatinine, Blood 0.83 mg/dL (0.40-1.00); Potassium, Blood 3.2 mmol/L (3.5-5.5)
[2024-09-30] MEDS ORDERED: Potassium Chloride 20 MEQ TabCR PO ONE (07:25)
[2024-09-30 08:35] VITALS: BP 125/68
[2024-09-30 14:59] VITALS: BP 116/65
--- NOTE | 2024-09-30 17:19 | NUR ---
PT AOX4 AND COOPERATIVE OF CARE. PT CONTINUES ON 3L O2. PT INDEPENDENT TO COMMODE AND STANDBY TO RESTROOM. ABLE TO MAKE ALL NEEDS KNOWN. COUGH IS NOT PRODUCTIVE TODAY. CALL LIGHT WITHIN REACH WILL CONTINUE TO MONITOR.
[2024-09-30 19:44] VITALS: BP 117/69
[2024-10-01] MEDS ORDERED: TraZODone HCl 50 MG Tab PO PRN (00:32)
[2024-10-01] MEDS ORDERED: TraZODone HCl 100 MG Tab PO ONE (00:35)
[2024-10-01 02:51] VITALS: BP 102/54
[2024-10-01 05:53] LABS: Bun/Creatinine Ratio 38.1 (12.0-20.0); Calcium, Blood 9.6 mg/dL (8.5-10.1); Creatinine, Blood 0.84 mg/dL (0.40-1.00); Potassium, Blood 3.3 mmol/L (3.5-5.5)
--- NOTE | 2024-10-01 06:47 | NUR ---
SHIFT SUMMARY ADMITTED FOR CHRONIC RESPIRATORY FAILURE SECONDARY TO COPD EXACERBATION. PT IS ON 3L O2 BASELINE AT HOME. PT IS INDEPENDENT AND ABLE TO AMBULATE TO THE TOILET. PT IS CONTINENT OF URINE AND BOWEL. PT IS COOPERATIVE WITH CARE AND ABLE TO MAKE NEEDS KNOWN TO STAFF. BED IS IN LOW POSITION, CALL LIGHT IS WITHIN REACH, AND RAILS ARE TIMES 2.
--- NOTE | 2024-10-01 06:48 | NUR ---
SHIFT SUMMARY PT ALERT AND ORIENTED TIMES . PT ADMITTED FOR RECTAL GI BLEED. PT APPEARED TO SLEEP THROUGH THE NIGHT. PT WAS ABLE TO MAKE NEEDS KNOWN TO STAFF. PT IS ABLE TO AMBULATE TO TOILET. PT HAD MULTIPLE BM S THROUGH THE NIGHT WITH MIN BLOOD. PT IS ON ROOM AIR, NO TELE, TAKES MEDICATION WHOLE WITH WATER. PT IS COOPERATIVE WITH CARE. CALL LIGHT WITHIN REACH, RAILS TIMES 2, BED IN LOW POSITION.
[2024-10-01] MEDS ORDERED: Potassium Chloride 20 MEQ TabCR PO ONE (07:40)
[2024-10-01 07:42] VITALS: BP 116/60
[2024-10-01] MEDS ORDERED: PredniSONE 20 MG Tab PO SCH (09:00)
[2024-10-01] MEDS ORDERED: ALBU90OI INH (12:01)
[2024-10-01] MEDS ORDERED: ATORVASTATIN CA20 MG PO (12:03)
[2024-10-01] MEDS ORDERED: DOCUZEN 8.6-501 EACH PO (12:27)
[2024-10-01] MEDS ORDERED: FURO20 PO (12:28)
[2024-10-01] MEDS ORDERED: METO25ER PO (12:28)
[2024-10-01] MEDS ORDERED: DULERA 200 MCG-13 GM INH (12:29)
[2024-10-01] MEDS ORDERED: NYSTATIN15 GM TOP (12:29)
[2024-10-01] MEDS ORDERED: Prednisone10 MG PO (12:30)
[2024-10-01] MEDS ORDERED: KLOR-CON 1010 ME9 PO (12:31)
[2024-10-01] MEDS ORDERED: JARDIANCE10 MG PO (12:31)
[2024-10-01] MEDS ORDERED: Nystatin 100,000 Unit/GM CREAM 15 GM TOP SCH (14:00)
[2024-10-01 15:48] VITALS: BP 114/65
--- NOTE | 2024-10-01 17:02 | NUR ---
DISCHARGE NOTE: WENT OVER DISCHARGE WITH PATIENT. PATIENT GOT DRESSED AND GATHERED BELONGINGS. DAUGHTER ERMIAS ARRIVED WITH PORTAL OXYGEN. PATIENT WHEELED DOWN TO [facility]. NO SIGNS OR SYMPTOMS OF DISTRESS WITH DISCHARGE.
== END 2024-10-01 16:32 | disposition home health service (06) | DRG 871 ==
LOC: ER 09:54 → PCU 12:51 → MEDS 09-25 18:07
PROVIDERS: Emergency Medicine; Internal Medicine; ADMIT Internal Medicine
PROC: 3E03329 Introduction of Other Anti-infective into Peripheral Vein, Percutaneous Approach (ICD-10-PCS; principal; 2024-09-22)
PROC: 5A09457 Assistance with Respiratory Ventilation, 24-96 Consecutive Hours, Continuous Positive Airway Pressure (ICD-10-PCS; 2024-09-22)
DX: A41.9 Sepsis, unspecified organism (principal); I50.43 Acute on chronic combined systolic (congestive) and diastolic (congestive) heart failure; J18.9 Pneumonia, unspecified organism; J96.21 Acute and chronic respiratory failure with hypoxia; J96.22 Acute and chronic respiratory failure with hypercapnia; J44.1 Chronic obstructive pulmonary disease with (acute) exacerbation; J44.0 Chronic obstructive pulmonary disease with (acute) lower respiratory infection; R65.20 Severe sepsis without septic shock; F31.9 Bipolar disorder, unspecified; F43.10 Post-traumatic stress disorder, unspecified; G43.909 Migraine, unspecified, not intractable, without status migrainosus; I27.20 Pulmonary hypertension, unspecified; Z96.641 Presence of right artificial hip joint; K21.9 Gastro-esophageal reflux disease without esophagitis; I48.91 Unspecified atrial fibrillation; R10.11 Right upper quadrant pain; R05.9 Cough, unspecified; E87.6 Hypokalemia; Z99.89 Dependence on other enabling machines and devices; Z99.81 Dependence on supplemental oxygen; Z85.72 Personal history of non-Hodgkin lymphomas; Z90.89 Acquired absence of other organs; Z98.890 Other specified postprocedural states; Z88.5 Allergy status to narcotic agent; Z88.8 Allergy status to other drugs, medicaments and biological substances; Z79.899 Other long term (current) drug therapy; Z79.51 Long term (current) use of inhaled steroids; Z87.891 Personal history of nicotine dependence
CPT/HCPCS: 36415; 71045; 76705; 80048; 80053; 80069; 81001; 82803; 83735; 83880; 84145; 84484; 85025; 85027; 87070; 87077; 87086; 87147; 87186; 87205; 93005; 93010; 93306; 94640; 94660; 94664; 94762; 96365; 99285-25; A9270; J0456; J0696; J1650; J1938; J2919; J3010; J7050; J7060; J7512

== ENCOUNTER → 2024-11-10 | Outpatient (CLI) | payer OTHER ==
[~2024-11-10] MED LIST changes: +ABILIFY MYCITE10 M2 PO; +ALBU90OI INH; +DOCUZEN 8.6-501 EACH PO; +DULERA 200 MCG-13 GM INH; +FURO20 PO; +KLOR-CON 1010 ME9 PO; +NYSTATIN15 GM TOP
== END ==
LOC: LAB SHORT 15:34 → LAB 15:34
DX: L02.92 Furuncle, unspecified (principal); A49.02 Methicillin resistant Staphylococcus aureus infection, unspecified site
CPT/HCPCS: 87070; 87077; 87147; 87186; 87205

== ENCOUNTER 2024-11-12 09:41 | Emergency (ER) | payer OTHER ==
[~2024-11-12] VITALS: Ht 157.5 cm; Wt 72.6 kg
[2024-11-12 11:07] LABS: BASOPHILS ABSOLUTE AUTO 0.02 K/mm3 (0.00-0.23); BASOPHILS PERCENT AUTO 0 % (0-2); EOSINOPHILS ABSOLUTE AUTO 0.29 K/mm3 (0.00-0.68); EOSINOPHILS PERCENT AUTO 5 % (0-6); Hematocrit 36.8 % (33.0-51.0); Hemoglobin 11.5 g/dL (11.5-16.0); IMMATURE GRAN ABSOLUTE AUTO 0.05 K/mm3 (0.00-0.10); IMMATURE GRAN PERCENT AUTO 1 % (0-1); LYMPHOCYTES ABSOLUTE AUTO 1.20 K/mm3 (0.84-5.20); LYMPHOCYTES PERCENT AUTO 21 % (21-46); MONOCYTES ABSOLUTE AUTO 0.40 K/mm3 (0.16-1.47); MONOCYTES PERCENT AUTO 7 % (4-13); Mean Corpuscular HGB Conc 31.3 g/dL (31.5-36.5); Mean Corpuscular Volume 93 fL (80-100); NEUTROPHILS ABSOLUTE AUTO 3.85 K/mm3 (1.96-9.15); NEUTROPHILS PERCENT AUTO 66 % (41-73); NRBC ABSOLUTE 0.00 K/mm3 (0.00-0.02); NRBC Auto 0.0 /100 WBC (0.0-0.2); Platelet Count 205 K/mm3 (150-400); RDW Coefficient Variation 15.3 % (11.7-14.2); RDW Standard Deviation 52.3 fL (35.1-46.3)
[2024-11-12 11:31] LABS: Alanine Aminotransfer (ALT/SGP 26.0 U/L (12-78); Albumin, Blood 3.5 g/dL (3.4-5.0); Albumin/Globulin Ratio 1.1 (0.8-1.8); Anion Gap 5.0 mmol/L (3-11); Aspartate Aminotrans (AST/SGOT 22.0 U/L (12-37); Bilirubin, Total 0.2 mg/dL (0.1-1.0); Blood Urea Nitrogen 9.0 mg/dL (8-24); CO2, Blood 34.0 mmol/L (21-32); Calcium, Blood 8.8 mg/dL (8.5-10.1); Chloride, Blood 105.0 mmol/L (98-108); Creatinine, Blood 0.72 mg/dL (0.40-1.00); Globulin, Blood 3.1 g/dL (2.2-4.0); Glucose, Blood 113.0 mg/dL (70-99); Potassium, Blood 3.9 mmol/L (3.5-5.5); Sodium, Blood 140.0 mmol/L (136-145); Total Protein, Blood 6.6 g/dL (6.4-8.2)
[2024-11-12] MEDS ORDERED: LINE600 PO (11:53)
[2024-11-12 12:01] VITALS: BP 123/77
== END 2024-11-12 12:02 | disposition home or self-care (01) ==
LOC: ER 09:41
PROVIDERS: Physician Assistant
DX: N76.4 Abscess of vulva (principal); Z88.5 Allergy status to narcotic agent; Z88.8 Allergy status to other drugs, medicaments and biological substances; Z79.899 Other long term (current) drug therapy; K21.9 Gastro-esophageal reflux disease without esophagitis; J44.9 Chronic obstructive pulmonary disease, unspecified; F17.210 Nicotine dependence, cigarettes, uncomplicated; F43.10 Post-traumatic stress disorder, unspecified
CPT/HCPCS: 80053; 85025; 87070; 87075; 87077; 87186; 87205; 99283

== ENCOUNTER → 2025-02-23 | Outpatient (CLI) | payer OTHER | LOC: LAB 16:20 → LAB SHORT 16:20 | DX: Z86.14 Personal history of Methicillin resistant Staphylococcus aureus infection (principal) | CPT/HCPCS: 87070; 87077; 87186; 87205 ==

== ENCOUNTER → 2025-03-30 | Outpatient (CLI) | payer OTHER | END | disposition home or self-care (01) | LOC: LAB SHORT 17:00 → LAB 17:00 | DX: A49.02 Methicillin resistant Staphylococcus aureus infection, unspecified site (principal) | CPT/HCPCS: 87070; 87077; 87147; 87186; 87205 ==